=== PATIENT | female | born 1960 | race Caucasian/White ===

== ENCOUNTER 2016-07-21 12:07 | Outpatient (CLI) | payer OTHER | END 2016-07-21 12:08 | disposition home or self-care (01) | DX: M19.012 Primary osteoarthritis, left shoulder (principal); M25.412 Effusion, left shoulder; M25.512 Pain in left shoulder ==

== ENCOUNTER 2016-08-28 13:45 | Outpatient (CLI) | payer OTHER | END 2016-08-28 13:46 | disposition home or self-care (01) | DX: Z12.31 Encounter for screening mammogram for malignant neoplasm of breast (principal) ==

== ENCOUNTER 2016-11-15 14:03 | Outpatient (CLI) | payer OTHER ==
--- NOTE | 2016-11-15 16:09 | MRI Report ---
EXAM: LEFT KNEE MRI WITHOUT CONTRAST EXAM DATE: 11/15/2016 02:35 PM. CLINICAL HISTORY: Left knee gave out over the past 2-3 months. COMPARISON: None. TECHNIQUE: Multiplanar, multisequence T1-weighted and fluid-sensitive sequences of the knee without c ontrast. Other: None. FINDINGS: Bones: There is subchondral edema in the medial margin of the medial femoral and tibial condyle adjac ent to the medial meniscus.. Articular Cartilage: There is severe thinning of the hyaline cartilage of the medial compartment, wit h regions of denuded bone. There is moderate to severe thinning of the hyaline cartilage of the duarte lofemoral compartment, with regions of denuded bone in the medial patellar facet. There is mild thinn ing of the hyaline cartilage of the lateral compartment. Medial Meniscus: There is a full-thickness radial tear of the posterior horn of the medial meniscus w ith medial extrusion. Lateral Meniscus: The lateral meniscus is intact. Cruciate Ligaments: There is complete rupture of the ACL. The PCL appears normal. Collateral Ligaments: There is partial discontinuity of the lateral collateral ligament fibers with i ncreased T2 signal consistent with a prior grade 2 injury. The medial collateral ligament appears unr emarkable. Tendons: The quadriceps, patellar, semimembranosus, and popliteus tendons are unremarkable. Musculature: No edema or fatty atrophy. Other: There is a moderate-sized joint effusion. No loose bodies. The medial and lateral retinacula are intact. The subcutaneous tissues and fat pads are unremarkable. IMPRESSION: 1. Full-thickness radial tear of the posterior horn of the medial meniscus with medial extrusion. 2. Moderate patellofemoral and medial compartment osteoarthritis. Mild lateral compartment osteoarthr itis. 3. Complete rupture of the ACL. 4. Prior grade 2 tear of the lateral collateral ligament. 5. Moderate-sized joint effusion. [facility] MUSCULOSKELETAL RADIOLOGY SECTION Referring Provider Line: [phone] SITE ID: [id number]
== END 2016-11-15 14:04 | disposition home or self-care (01) ==
LOC: DI 14:03
PROVIDERS: ATTEND Orthopaedic Surgery
DX: S83.242A Other tear of medial meniscus, current injury, left knee, initial encounter (principal); M17.12 Unilateral primary osteoarthritis, left knee; S83.512A Sprain of anterior cruciate ligament of left knee, initial encounter; S83.422A Sprain of lateral collateral ligament of left knee, initial encounter; M25.462 Effusion, left knee

== ENCOUNTER 2017-01-03 12:44 | Outpatient (CLI) | payer OTHER | END 2017-01-03 12:45 | disposition home or self-care (01) | LOC: LAB 12:44 | PROVIDERS: ATTEND Orthopaedic Surgery | DX: Z01.812 Encounter for preprocedural laboratory examination (principal) | CPT/HCPCS: 87081; 87640 ==

== ENCOUNTER 2017-01-22 07:14 | Outpatient (CLI) | payer OTHER ==
[2017-01-22 13:09] LABS: BASOPHILS % (AUTO) 0.3 %; EOSINOPHILS # (AUTO) 0.1 10^3/uL (0.0-0.7); EOSINOPHILS % (AUTO) 1.9 %; HCT - HEMATOCRIT 42.7 % (37.0-47.0); HGB - HEMOGLOBIN 14.6 g/dL (12.0-16.0); LYMPHOCYTES # (AUTO) 2.4 10^3/uL (1.5-3.5); LYMPHOCYTES % (AUTO) 36.7 %; MEAN CORPUSCULAR HEMOGLOBIN 29.7 pg (27.0-31.0); MEAN CORPUSCULAR HGB CONC 34.2 g/dL (32.0-36.0); MEAN CORPUSCULAR VOLUME 86.8 fL (81.0-99.0); MEAN PLATELET VOLUME 10.7 fL (7.9-10.8); MONOCYTES # (AUTO) 0.5 10^3/uL (0.0-1.0); MONOCYTES % (AUTO) 7.4 %; NEUTROPHILS # (AUTO) 3.5 10^3/uL (1.5-6.6); NEUTROPHILS % (AUTO) 53.7 %; RED BLOOD COUNT 4.92 10^6/uL (4.20-5.40); RED CELL DISTRIBUTION WIDTH 13.4 % (12.0-15.0); UNCORRECTED WHITE BLOOD COUNT 6.5 x10^3/uL; WHITE BLOOD COUNT 6.5 x10^3/uL (4.8-10.8)
[2017-01-22 13:45] LABS: ALBUMIN/GLOBULIN RATIO 1.9 (1.0-2.2); BILIRUBIN,TOTAL 0.8 mg/dL (0.2-1.0); BUN - BLOOD UREA NITROGEN 21 mg/dL (6-20); CALCIUM 9.2 mg/dL (8.5-10.3); CARBON DIOXIDE - CO2 24 mmol/L (21-32); CHLORIDE 111 mmol/L (101-111); CHOL/HDL RATIO 3.6 (<4.4); CHOLESTEROL 186 mg/dL; GFR - MDRD 58 (>89); GLUCOSE 101 mg/dL (70-100); HDL CHOLESTEROL 51 mg/dL; LDL/HDL RATIO 2.1 (<4.4); POTASSIUM 3.8 mmol/L (3.5-5.0); SODIUM 142 mmol/L (135-145); TOTAL PROTEIN 6.9 g/dL (6.7-8.2); TRIGLYCERIDES 134 mg/dL; VLDL CHOLESTEROL 27 mg/dL
== END 2017-01-22 07:15 | disposition home or self-care (01) ==
LOC: LAB.WCP 07:14
PROVIDERS: ATTEND Family Medicine
DX: I10 Essential (primary) hypertension (principal)
CPT/HCPCS: 36415; 80053; 80061; 84443; 85025

== ENCOUNTER 2017-02-13 04:31 | Inpatient (IN) | payer OTHER ==
[~2017-02-13 04:31] MED LIST: BUPIVACAINE 0.5% PF 30 ML VIAL SUBQ ONE; KETOROLAC 30 MG/ML VIAL IM ONE; MORPHINE PF 10 MG/10 ML AMP SUBQ ONE; ROPIVACAINE 0.2% PF 20 ML AMPULE SUBQ ONE
[2017-02-13] MEDS ORDERED: ceFAZolin 2 GM/50 ML 50 ML IV ONE (09:03)
[2017-02-13] MEDS ORDERED: LACTATED RINGERS 1,000 ML IV ONE ×3 (09:24→13:45)
[2017-02-13] MEDS ORDERED: MORPHINE PF 10 MG/10 ML AMP SUBQ ONE (11:33)
[2017-02-13] MEDS ORDERED: KETOROLAC 30 MG/ML VIAL IM ONE (11:34)
[2017-02-13] MEDS ORDERED: EPINEPHrine 1 MG/ML AMP IVP ONE ×2 (11:34)
[2017-02-13] MEDS ORDERED: BUPIVACAINE 0.5% PF 30 ML VIAL SUBQ ONE (11:34)
[2017-02-13] MEDS ORDERED: ROPIVACAINE 0.2% PF 20 ML AMPULE SUBQ ONE (11:34)
[2017-02-13] MEDS ORDERED: BISACODYL 10 MG SUPP PR PRN (13:06)
[2017-02-13] MEDS ORDERED: SODIUM CHLORIDE FLUSH 0.9% 10 ML SYRINGE IVP PRN (13:06)
[2017-02-13] MEDS ORDERED: SENNA 8.6 MG TABLET PO PRN (13:06)
[2017-02-13] MEDS ORDERED: oxyCOD/ACETAMIN 5 MG/325 MG TABLET PO PRN (13:06)
[2017-02-13] MEDS ORDERED: HYDROmorphone 1 MG/ML SYRINGE IVP PRN (13:06)
--- NOTE | 2017-02-13 13:06 | OPERATIVE REPORT ---
Operative Report - General Admit Date: 02/13/17 Procedure Date: 02/13/17 Planned Procedure: right TKA Pre-Op Diagnosis: DJD right knee Procedure Performed: Right TKA Post Op Diagnosis: DJD right knee - Procedure Note Primary Surgeon: Abdiaziz Anesthesia Provider: Dale Anesthesia Technique: Spinal Estimated Blood Loss (mL): 25 Drain/Tube Type: Hemovac
[2017-02-13] MEDS ORDERED: BACLOFEN 10 MG TABLET PO PRN (13:09)
[2017-02-13] MEDS ORDERED: LORazepam 0.5 MG TABLET PO PRN (13:40)
[2017-02-13] MEDS: ONDANSETRON 4 MG/2 ML VIAL IVP PRN ×2 (14:37→21:56)
--- NOTE | 2017-02-13 15:41 | OPERATIVE REPORT ---
DATE OF SURGERY: 02/13/2017 00:00:0008 PREOPERATIVE DIAGNOSIS: Right knee osteoarthritis. POSTOPERATIVE DIAGNOSIS: Right knee osteoarthritis. NAME OF PROCEDURE: Right total knee arthroplasty. SURGEON: Nemo Freed MD. ANESTHESIA: General and spinal by Shahid Hunter CRNA. INDICATIONS FOR SURGERY: The patient is a 56-year-old female with progressive severe right knee pain that has become functionally limiting and not responding to nonoperative conservative measures. Recom mendation is for total knee arthroplasty. FINDINGS AT SURGERY: The patient's knee exam showed range of motion 5 degrees to 120 degrees with goo d stability in varus valgus testing and mild crepitus in range of motion and Samm testing. At ope n surgery, she was found to have a knee joint effusion and severe degeneration of tricompartmental ar eas of her knee most profound in the medial compartment, but also in the others. The patient had diff use spurring of the joint and intact cruciate ligaments, intact menisci. The patient's bone density i n general was fairly soft. DESCRIPTION OF OPERATIVE PROCEDURE: The patient was taken to the operating room and given a spinal an esthetic. Ibarra catheter was inserted. A tourniquet was placed on her thigh, her knee and leg were st erilely prepped and draped in standard fashion. The surgery was undertaken after time-out with a curv ed medial incision through skin and subcutaneous tissue and then a medial parapatellar incision expos ing the intraarticular knee joint and removing effusion. The patella was able to be everted dislocate d laterally, allowing knee flexion and exposure of osteophytes that were removed from around the tibi a, femur and the patella. A central medullary hole was made in the femur for placement of the distal femoral cutting block which was cut in a routine fashion and then the femur was sized to a size 5 and the appropriate 4-1 cutting block was applied, and these cuts made. The tibia was then subluxated an teriorly and retractors were positioned to allow exposure of the tibial surface and the external towe r was applied and aligned for slope and resection level and rotation. Cut was made, followed by broac paddy for the stem. This was a size C matching to the size 5 femur. The trial reduction was performed and a 14 poly appeared to restore range of motion and good stability. With trials in place, the duarte la was exposed with the knee in extension and measured and then resected. A minimal resection was don e at 8 mm as the patella was initially 22 mm thick. This was a very small patella measuring 26 mm for sizing, and was sized and drilled appropriately. The trial reduction tracked very nicely over the kn ee without further lateral release performed. Trial components were removed, and the implantable comp onents brought to the field initially cementing the tibial tray size C followed by the insertion of t he size 5 distal femur and then the 26 mm patella. A temporary sizing block was placed with the knee in extension to allow cement hardening, after which trial reduction was again done with poly and the 14 poly was selected and inserted. The knee was ranged and was stable and satisfactory irrigation was performed followed by placement of the drain and closure of the knee utilizing FiberWire suture in t he capsule, layered Vicryl closure of subcutaneous tissue and Monocryl closure of skin. Sterile dress ings were applied to the knee. The patient was then taken from the hospital bed to the [facility] and to recovery room in stable condition. ESTIMATED BLOOD LOSS: Minimal. COMPLICATIONS: None. SPONGE AND NEEDLE COUNTS: Correct. JOB #: [id number] EXT JOB #:[id number]
[2017-02-13] MEDS: SODIUM CHLORIDE FLUSH 0.9% 10 ML SYRINGE IVP SCH ×2 (16:09→19:22)
--- NOTE | 2017-02-13 17:03 | XRAY Report ---
TWO VIEW RIGHT KNEE: 02/13/2017 CLINICAL INDICATION: Postop. Frontal and lateral views of the right knee demonstrate a total knee replacement in place. Subcutane ous gas and suprapatellar drain are noted. There is no evidence of acute fracture or immediate hardw are complication. IMPRESSION: EXPECTED POSTOPERATIVE APPEARANCE OF RIGHT KNEE REPLACEMENT. JOB #: [id number] EXT JOB #:[id number]
[2017-02-13] MEDS: ceFAZolin 2 GM/50 ML 50 ML IV SCH (17:55)
[2017-02-13] MEDS: PROMETHAZINE INJ 25 MG in SODIUM CHLORIDE 0.9% 50 ML IV PRN (18:08)
[2017-02-13] MEDS: SODIUM CHLORIDE 0.45% 1,000 ML IV SCH (21:41)
[2017-02-13] MEDS: TOPIRAMATE 25 MG TABLET PO SCH (21:41)
[2017-02-14] MEDS: SODIUM CHLORIDE 0.45% 1,000 ML IV SCH ×2 (00:04→09:28)
[2017-02-14] MEDS ORDERED: PROMETHAZINE 25 MG/1 ML VIAL ONE (00:23)
[2017-02-14] MEDS: PROMETHAZINE INJ 25 MG in SODIUM CHLORIDE 0.9% 50 ML IV PRN (00:29)
[2017-02-14] MEDS: ceFAZolin 2 GM/50 ML 50 ML IV SCH (00:30)
[2017-02-14] MEDS: SODIUM CHLORIDE FLUSH 0.9% 10 ML SYRINGE IVP SCH ×3 (05:40→20:30)
[2017-02-14] MEDS: ONDANSETRON 4 MG/2 ML VIAL IVP PRN ×2 (05:40→09:26)
[2017-02-14 06:19] LABS: CALCIUM 8.6 mg/dL (8.5-10.3); CREATININE 1.2 mg/dL (0.4-1.0); POTASSIUM 3.8 mmol/L (3.5-5.0)
[2017-02-14 06:22] LABS: HGB - HEMOGLOBIN 13.3 g/dL (12.0-16.0)
--- NOTE | 2017-02-14 08:54 | PROVIDER PROGRESS NOTE ---
Subjective - General Admit Date: 02/13/17 Procedure Date: 02/13/17 Post Op Days: 1 Procedure Performed: Right TKA - Review of Systems Wound/Incisions: positive: Dressing dry and intact General: positive: Appetite (nausea) Gastrointestinal: positive: Nausea, Vomiting Objective - Patient Data Reviewed Vital Signs: Yes Vital Signs: Vital Signs x48h Temp Pulse Resp BP Pulse Ox 02/14/17 05:00 37.2 C 97 16 114/62 97 02/14/17 01:00 37.4 C 79 16 117/65 93 Weight: Weight 02/12/17 02/13/17 02/14/17 23:59 23:59 23:59 Weight (kg) 112.6 kg Intake & Output: Intake and Output Totals x24h 02/12/17 02/13/17 02/14/17 23:59 23:59 23:59 Intake Total 3070 799 Output Total 990 650 Balance 2080 149 - Lab Results Lab Results: 02/14/17 05:59 02/14/17 05:59 Other Lab Results: Lab Results x24hrs 02/14/17 02/14/17 Range/Units 05:59 05:59 Hgb 13.3 (12.0-16.0) g/dL Hct 40.0 (37.0-47.0) % Sodium 141 (135-145) mmol/L Potassium 3.8 (3.5-5.0) mmol/L Chloride 106 (101-111) mmol/L Carbon Dioxide 28 (21-32) mmol/L Anion Gap 7.0 (6-13) BUN 21 H (6-20) mg/dL Creatinine 1.2 H (0.4-1.0) mg/dL Estimated GFR (MDRD) 47 L (>89) Glucose 146 H (70-100) mg/dL Calcium 8.6 (8.5-10.3) mg/dL - Imaging Results Radiology Imaging: positive: EMP read indepedently - Current Medications Current Medications: Current Medications Generic Name Dose Route Start Last Admin Trade Name Freq PRN Reason Stop Dose Admin Hydromorphone HCl 1 mg 02/13/17 13:06 02/14/17 00:15 Dilaudid Inj IVP 1 mg Q2HR PRN Administration Breakthrough Pain Sodium Chloride 1,000 mls @ 100 mls/hr 02/13/17 14:00 08/23/17 00:04 Normal Saline 0.45% IV Not Given .Q10H EDELMIRA Promethazine HCl 25 mg/ Sodium 51 mls @ 100 mls/hr 02/13/17 17:08 02/14/17 00: 29 Chloride IV 100 mls/hr Q6H PRN Administration Nausea / Vomiting Ondansetron HCl 4 mg 02/13/17 13:06 02/14/17 05:40 Zofran Inj IVP 4 mg Q6HR PRN Administration Nausea / Vomiting Sodium Chloride 10 ml 02/13/17 14:00 02/14/17 05:40 Normal Saline Flush 0.9% IVP 10 ml Q8HR EDELMIRA Administration Topiramate 25 mg 02/13/17 21:00 02/13/17 21:41 Topamax PO 25 mg BID EDELMIRA Administration - Physical Exam Wound/Incisions: positive: Dressing dry and intact General Appearance: positive: No acute distress Skin: positive: Warm, Dry Neurologic/Psychiatric: positive: Motor nml, Sensation nml, Mood/affect nml Impression/Plan - Problem List Problem List: POD#1 Will make med changes for nausea Plan to do PT, and drain out today. Labs stable
[2017-02-14] MEDS: FAMOTIDINE 20 MG TABLET PO SCH (09:29)
[2017-02-14] MEDS: LEVOTHYROXINE 100 MCG TABLET PO SCH (09:29)
[2017-02-14] MEDS: CHOLECALCIFEROL 1,000 UNIT TABLET PO SCH (09:29)
[2017-02-14] MEDS: CETIRIZINE 10 MG TABLET PO SCH (09:29)
[2017-02-14] MEDS: GABAPENTIN 300 MG CAPSULE PO SCH (09:29)
[2017-02-14] MEDS: VENLAFAXINE ER 75 MG CAPSULE PO SCH (09:29)
[2017-02-14] MEDS: LISINOPRIL 5 MG TABLET PO SCH (09:29)
[2017-02-14] MEDS: TOPIRAMATE 25 MG TABLET PO SCH ×2 (09:30→20:30)
[2017-02-14] MEDS: VITAMIN B COMPLEX PO SCH (09:30)
[2017-02-14] MEDS: MULTIVITAMIN W/MINERALS TABLET PO SCH (09:38)
[2017-02-14] MEDS: ATORVASTATIN 10 MG TABLET PO SCH (09:38)
[2017-02-14] MEDS: HYDROmorphone 2 MG TABLET PO PRN ×2 (14:23→20:30)
[2017-02-14] MEDS: ENOXAPARIN 40 MG/0.4 ML SYRINGE SUBQ SCH (14:59)
[2017-02-14] MEDS: ACETAMINOPHEN 325 MG TABLET PO PRN (21:16)
[2017-02-15] MEDS: HYDROmorphone 2 MG TABLET PO PRN ×3 (02:33→13:55)
[2017-02-15] MEDS: SODIUM CHLORIDE FLUSH 0.9% 10 ML SYRINGE IVP SCH ×2 (06:21→12:41)
[2017-02-15] MEDS: SODIUM CHLORIDE 0.45% 1,000 ML IV SCH (07:45)
[2017-02-15] MEDS: FAMOTIDINE 20 MG TABLET PO SCH (08:11)
[2017-02-15] MEDS: LISINOPRIL 5 MG TABLET PO SCH (08:11)
[2017-02-15] MEDS: CETIRIZINE 10 MG TABLET PO SCH (08:11)
[2017-02-15] MEDS: VENLAFAXINE ER 75 MG CAPSULE PO SCH (08:12)
[2017-02-15] MEDS: CHOLECALCIFEROL 1,000 UNIT TABLET PO SCH (08:12)
[2017-02-15] MEDS: ENOXAPARIN 40 MG/0.4 ML SYRINGE SUBQ SCH (08:12)
[2017-02-15] MEDS: GABAPENTIN 300 MG CAPSULE PO SCH (08:12)
[2017-02-15] MEDS: TOPIRAMATE 25 MG TABLET PO SCH (08:12)
[2017-02-15] MEDS: LEVOTHYROXINE 100 MCG TABLET PO SCH (08:12)
[2017-02-15] MEDS: MULTIVITAMIN W/MINERALS TABLET PO SCH (08:12)
[2017-02-15] MEDS: ATORVASTATIN 10 MG TABLET PO SCH (08:12)
[2017-02-15] MEDS: VITAMIN B COMPLEX PO SCH (08:13)
--- NOTE | 2017-02-15 08:34 | PROVIDER PROGRESS NOTE ---
Subjective - General Admit Date: 02/13/17 Procedure Date: 02/13/17 Post Op Days: 2 Procedure Performed: Right TKA - Review of Systems Wound/Incisions: positive: Dressing dry and intact General: positive: Appetite (nausea) Gastrointestinal: positive: No symptoms Musculoskeletal: positive: Joint pain Psychiatric: positive: No symptoms Objective - Patient Data Reviewed Vital Signs: Yes Vital Signs: Vital Signs x48h Temp Pulse Resp BP Pulse Ox 02/15/17 08:04 37.8 C H 102 H 20 152/82 H 96 02/15/17 05:15 37.3 C 106 H 18 152/76 H 94 02/15/17 01:00 37 C 96 18 133/70 H 98 Weight: Weight 02/13/17 02/14/17 02/15/17 23:59 23:59 23:59 Weight (kg) 112.6 kg Intake & Output: Intake and Output Totals x24h 02/13/17 02/14/17 02/15/17 23:59 23:59 23:59 Intake Total 3070 1829 200 Output Total 990 1775 300 Balance 2080 54 -100 - Lab Results Lab Results: 02/14/17 05:59 02/14/17 05:59 Other Lab Results: Lab Results x24hrs 02/13/17 02/13/17 Range/Units 18:05 09:38 Blood Type A POSITIVE Blood Type Recheck A POSITIVE Antibody Screen NEGATIVE - Current Medications Current Medications: Current Medications Generic Name Dose Route Start Last Admin Trade Name Freq PRN Reason Stop Dose Admin Acetaminophen 650 - 975 mg 02/13/17 13:06 02/14/17 21:16 Tylenol PO 650 mg Q4HR PRN Administration PAIN Atorvastatin Calcium 20 mg 02/14/17 09:00 02/15/17 08:12 Lipitor PO 20 mg DAILY EDELMIRA Administration Cetirizine HCl 10 mg 02/14/17 09:00 02/15/17 08:11 Zyrtec PO 10 mg DAILY EDELMIRA Administration Cholecalciferol 2,000 unit 02/14/17 09:00 02/15/17 08:12 Vitamin D3 PO 2,000 unit DAILY EDELMIRA Administration Enoxaparin Sodium 40 mg 02/14/17 13:00 02/15/17 08:12 Lovenox SUBQ 40 mg DAILY EDELMIRA Administration Famotidine 20 mg 02/14/17 09:00 02/15/17 08:11 Pepcid PO 20 mg DAILY EDELMIRA Administration Gabapentin 300 mg 02/14/17 09:00 02/15/17 08:12 Neurontin PO 300 mg DAILY EDELMIRA Administration Hydromorphone HCl 1 mg 02/13/17 13:06 02/14/17 00:15 Dilaudid Inj IVP 1 mg Q2HR PRN Administration Breakthrough Pain Hydromorphone HCl 2 mg 02/14/17 12:10 02/15/17 08:11 Dilaudid PO 2 mg Q6HR PRN Administration Severe Pain Sodium Chloride 1,000 mls @ 100 mls/hr 02/13/17 14:00 02/15/17 07:45 Normal Saline 0.45% IV Not Given .Q10H EDELMIRA Promethazine HCl 25 mg/ Sodium 51 mls @ 100 mls/hr 02/13/17 17:08 02/14/17 00: 29 Chloride IV 100 mls/hr Q6H PRN Administration Nausea / Vomiting Levothyroxine Sodium 100 mcg 02/14/17 09:00 02/15/17 08:12 Synthroid PO 100 mcg DAILY EDELMIRA Administration Lisinopril 5 mg 02/14/17 09:00 02/15/17 08:11 Zestril PO 5 mg DAILY EDELMIRA Administration Multivitamins/Minerals 1 tab 02/14/17 08:00 02/15/17 08:12 Theragran M PO 1 tab DAILYWM EDELMIRA Administration Ondansetron HCl 4 mg 02/13/17 13:06 02/14/17 09:26 Zofran Inj IVP 4 mg Q6HR PRN Administration Nausea / Vomiting Vitamin B Complex 1 each 02/14/17 09:00 02/15/17 08:13 Tab (Otc) PO Not Given DAILY EDELMIRA Sodium Chloride 10 ml 02/13/17 14:00 02/15/17 06:21 Normal Saline Flush 0.9% IVP 10 ml Q8HR EDELMIRA Administration Topiramate 25 mg 02/13/17 21:00 02/15/17 08:12 Topamax PO 25 mg BID EDELMIRA Administration Venlafaxine HCl 75 mg 02/14/17 09:00 02/15/17 08:12 Effexor Er PO 75 mg DAILY EDELMIRA Administration - Physical Exam Wound/Incisions: positive: Healing well General Appearance: positive: No acute distress Extremities: positive: Joint swelling Neurologic/Psychiatric: positive: Motor nml, Sensation nml Impression/Plan - Problem List Problem List: POD #2 Wound is healing well. Pain control good. Pt. would like to return home and seems ready for that. D/C put in place with office f/u next week.
--- NOTE | 2017-02-15 10:35 | Discharge Plan ---
Discharge Plan Disposition: Home, Self Care Condition: Good Prescriptions: HYDROmorphone [Dilaudid] 2 mg PO Q6HR PRN #30 tablet PRN Reason: Severe Pain Enoxaparin [Lovenox] 40 mg SUBQ DAILY #10 syringe Senna [Senokot] 17.2 mg PO Q12H PRN #14 tablet PRN Reason: Constipation Diet: Regular Activity Restrictions: Wt Bearing as Tolerated Shower Restrictions: Yes (cover dressing) Driving Restrictions: Yes (no driving) Assistance Devices: Walker Weight Bearing: Full Weight Instruction Topics: Hydromorphone tablets, Knee Replace Total Dc, Enoxaparin injection Additional Instructions or Follow Up instructions: office f/u with Dr. Freed next week. Leave dressing intact, clean and dry. Follow-Up Care: Outpatient Rehab - PT (Referral to outpt PT in place.) No Smoking: If you smoke, Please STOP! Call for help. Follow-up with: Isabela Johnston MD [Primary Care Provider] - Nemo Freed MD [Provider Admit Priv/Credential] -
[2017-02-15] MEDS: ACETAMINOPHEN 325 MG TABLET PO PRN (11:04)
[2017-02-15 13:58] VITALS: BP 144/78
== END 2017-02-15 14:27 | disposition home or self-care (01) | DRG 470 ==
LOC: MS2 09:08
PROVIDERS: ADMIT Orthopaedic Surgery; ATTEND Orthopaedic Surgery
PROC: 0SRC0J9 Replacement of Right Knee Joint with Synthetic Substitute, Cemented, Open Approach (ICD-10-PCS; principal; 2017-02-13 10:15)
DX: M17.11 Unilateral primary osteoarthritis, right knee (principal); I10 Essential (primary) hypertension; E78.5 Hyperlipidemia, unspecified; E03.9 Hypothyroidism, unspecified; M79.7 Fibromyalgia; F32.9 Major depressive disorder, single episode, unspecified; K21.9 Gastro-esophageal reflux disease without esophagitis; F41.9 Anxiety disorder, unspecified; G47.30 Sleep apnea, unspecified; G43.909 Migraine, unspecified, not intractable, without status migrainosus; E55.9 Vitamin D deficiency, unspecified; Z87.891 Personal history of nicotine dependence
CPT/HCPCS: 36415; 80048; 85014; 85018; 86850; 86900; 86901

== ENCOUNTER 2017-05-08 06:02 | Inpatient (IN) | payer OTHER ==
[2017-05-08] MEDS ORDERED: LACTATED RINGERS 1,000 ML IV ONE ×3 (06:34→09:17)
[2017-05-08] MEDS ORDERED: ceFAZolin 2 GM/50 ML 2 GM/50 ML BAG IV ONE (06:36)
[2017-05-08] MEDS ORDERED: ACETAMINOPHEN 1,000 MG/100 ML 100 ML IV ONE ×2 (06:37→09:00)
[2017-05-08] MEDS ORDERED: SCOPOLAMINE PATCH TOP ONE (07:00)
[2017-05-08] MEDS ORDERED: FAMOTIDINE 20 MG/50 ML 50 ML IV ONE (07:02)
[2017-05-08] MEDS ORDERED: PROPOFOL 200 MG/20 ML VIAL IVP ONE (09:00)
[2017-05-08] MEDS ORDERED: BUPIVACAINE 0.5% PF 30 ML VIAL SUBQ ONE ×2 (09:00→09:34)
[2017-05-08] MEDS ORDERED: ePHEDrine 50 MG/ML VIAL IVP ONE (09:00)
[2017-05-08] MEDS ORDERED: TRANEXAMIC ACID 1,000 MG/10 ML VIAL IV ONE (09:00)
[2017-05-08] MEDS ORDERED: LIDOCAINE-MPF 2% 5 ML VIAL IM ONE (09:00)
[2017-05-08] MEDS ORDERED: KETOROLAC 30 MG/ML VIAL IVP ONE (09:00)
[2017-05-08] MEDS ORDERED: DEXAMETHASONE 4 MG/ML VIAL IVP ONE (09:00)
[2017-05-08] MEDS ORDERED: MIDAZOLAM 2 MG/2 ML VIAL IVP ONE (09:00)
[2017-05-08] MEDS ORDERED: PROPOFOL 1000 MG/100 ML IV ONE (09:00)
[2017-05-08] MEDS ORDERED: ONDANSETRON 4 MG/2 ML VIAL IVP ONE (09:00)
[2017-05-08] MEDS ORDERED: ROPIVACAINE 0.2% PF 20 ML AMPULE SUBQ ONE (09:15)
[2017-05-08] MEDS ORDERED: KETOROLAC 15 MG/ML VIAL IM ONE (09:15)
[2017-05-08] MEDS ORDERED: EPINEPHrine 1 MG/ML AMP IM ONE (09:15)
[2017-05-08] MEDS ORDERED: CETIRIZINE 10 MG TABLET PO PRN (09:55)
[2017-05-08] MEDS ORDERED: BACLOFEN 10 MG TABLET PO PRN (09:55)
--- NOTE | 2017-05-08 09:55 | OPERATIVE REPORT ---
Operative Report - General Admit Date: 05/08/17 Procedure Date: 05/08/17 Planned Procedure: left TKA Pre-Op Diagnosis: DJD left knee Procedure Performed: Left Total Knee Arthroplasty Post Op Diagnosis: djd left knee - Procedure Note Primary Surgeon: grace Anesthesia Technique: Combo spinal/epidural Estimated Blood Loss (mL): 75
[2017-05-08] MEDS ORDERED: PROCHLORPERAZINE 10 MG/2 ML VIAL IVP PRN (09:56)
[2017-05-08] MEDS ORDERED: ACETAMINOPHEN 1,000 MG/100 ML 100 ML IV PRN (09:56)
[2017-05-08] MEDS ORDERED: oxyCOD/ACETAMIN 5 MG/325 MG TABLET PO PRN (09:56)
[2017-05-08] MEDS ORDERED: SODIUM CHLORIDE FLUSH 0.9% 10 ML SYRINGE IVP PRN (09:56)
[2017-05-08] MEDS ORDERED: BISACODYL 10 MG SUPP PR PRN (09:56)
[2017-05-08] MEDS ORDERED: LORazepam 0.5 MG TABLET PO PRN (10:21)
--- NOTE | 2017-05-08 10:42 | XRAY Report ---
TWO-VIEW LEFT KNEE: 05/08/2017 CLINICAL INDICATION: Postoperative. FINDINGS: Frontal and lateral views of the left knee demonstrate a left knee replacement in place. Subcutaneous gas is seen. There is no evidence of fracture or dislocation. IMPRESSION: EXPECTED POSTOPERATIVE APPEARANCE OF LEFT KNEE REPLACEMENT. JOB #: [id number] EXT JOB #:[id number]
[2017-05-08] MEDS: SODIUM CHLORIDE FLUSH 0.9% 10 ML SYRINGE IVP SCH ×2 (10:45→22:26)
[2017-05-08] MEDS: SODIUM CHLORIDE 0.45% 1,000 ML IV SCH ×2 (11:51→22:30)
--- NOTE | 2017-05-08 12:28 | OPERATIVE REPORT ---
DATE OF SURGERY: 05/08/2017 00:00:00 PREOPERATIVE DIAGNOSIS: Left knee osteoarthritis. POSTOPERATIVE DIAGNOSIS: Left knee osteoarthritis. PROCEDURE: Left total knee replacement arthroplasty. OPERATING SURGEON: Nemo Freed MD. ANESTHESIA: General and spinal. INDICATIONS FOR SURGERY: The patient is a 56-year-old female with progressive osteoarthritis of both knees. She has recently undergone successful right total knee arthroplasty and she now desires surger y of the left knee, which is progressively worsening. The patient reports chronic knee pain, enlargem ent with effusion, and sometimes a feeling of instability. FINDINGS AT SURGERY: The patient's knee exam showed slight effusion, range of motion 3 degrees to ful l flexion with crepitus. At open arthrotomy, she had effusion and synovitis and more severe patchy ch ondromalacia than was expected with full grade thickness, loss of cartilage in the medial compartment on the femoral condyle and on the underside of the patella, as well as defects laterally. The patien t had osteophytic enlargement of the knee, both tibial and femoral and a loose body in the posterior part of the posteromedial knee. DESCRIPTION OF OPERATIVE PROCEDURE: The patient was taken to the operating room. She was given a spin al anesthetic and then positioned supine, receiving anesthetic sedation. A tourniquet was placed high on her left thigh. Her limb was sterilely prepped and draped in the standard fashion. After a surgic al time-out, a medial parapatellar skin incision was made of about 8 inches in length, followed by de epening of the incision to the medial retinaculum and incising along the medial retinaculum to expose the knee joint by arthrotomy. Synovial effusion was evacuated with the suction and further fat pad w as resected, and towards the medial and lateral meniscus and anterior cruciate ligament stump. This a llowed eversion of the patella and flexion of the knee, after which a rongeur was used to remove oste ophytes on all exposed surfaces. The central medullary hole was placed, after which the intramedullar y guide was placed and the distal femoral cutting block applied. A distal cut was made. The sizing bl ock was not effectively able to be placed on the knee due to generalized tightness, and therefore it was elected to proceed directly with resection of the patella from 22 mm down to 15 in preparation fo r patellar replacement with a slight lateral release that did not penetrate the outer layers. The med ial collateral was slightly reflected on the anterior tibia to allow placement of the tibial cutting block and retractors in position to allow this cut to be made, resecting a standard cut and removing the bone and removing then the posterior horns of the menisci and the loose body in the back of the k nee. Following this, the sizing block was reapplied to the femur and appropriate sizing was a 5, just as her opposite knee had sized and 4 in 1 cutting block was applied, and these cuts made. The medull ivanna hole was plugged with cancellous bone and the tibia also sized identically to the right with a si ze C base plate for a 4-5 block, and the Broach stem was drilled and then broached. Trial implants we re applied and a 14 mm poly restored excellent stability, full range of motion, and no tendency to ex trusion of the implants. These implants were removed. The tissues were then irrigated thoroughly and cement was prepared for cementing in the implantable components of a Persona knee and after adequate drying of the cancellous bone, the tibial baseplate and stem were inserted with cement, excess cement removed. The femur was then applied with cement followed by insertion of the tibial poly. Once all e xcess cement was removed, the knee was dropped into extension and further cement was extruded and rem ciara. The patella was then lastly cemented into place and held with a clamp as the cement hardened. F ollowing cement hardening, the knee was flushed and irrigated, and at this point the tourniquet was d eflated. Cautery was used in a limited fashion to control the minimal bleeders that were evident. Idalia sure was undertaken with FiberWire closure of the retinaculum in an interrupted fashion. Subcutaneous tissue closed with 0 and 2-0 Vicryl interrupted and skin with 3-0 Monocryl in a running fashion. A s terile silver containing dressing was applied, followed by ABDs, cast padding, and an Kirk wrap. The p atient was taken to the recovery room in stable condition. ESTIMATED BLOOD LOSS: Minimal, less than 75. COMPLICATIONS: None. SPONGE AND NEEDLE COUNTS: Correct. JOB #: [id number] EXT JOB #:[id number]
[2017-05-08] MEDS: ASPIRIN 325 MG TABLET PO SCH (16:59)
[2017-05-08] MEDS: HYDROmorphone 2 MG TABLET PO PRN ×2 (16:59→22:30)
[2017-05-08] MEDS: ceFAZolin 2 GM/50 ML 2 GM/50 ML BAG IV SCH (16:59)
[2017-05-08] MEDS: ATORVASTATIN 40 MG TABLET PO SCH (22:25)
[2017-05-08] MEDS: VENLAFAXINE ER 75 MG CAPSULE PO SCH (22:25)
[2017-05-08] MEDS: FAMOTIDINE 20 MG TABLET PO SCH (22:25)
[2017-05-08] MEDS: GABAPENTIN 300 MG CAPSULE PO SCH (22:25)
[2017-05-08] MEDS: TOPIRAMATE 25 MG TABLET PO SCH (22:25)
[2017-05-09] MEDS: HYDROmorphone 0.5 MG/0.5 ML SYRINGE IVP PRN ×3 (00:52→20:28)
[2017-05-09] MEDS: SODIUM CHLORIDE FLUSH 0.9% 10 ML SYRINGE IVP SCH ×4 (00:53→20:28)
[2017-05-09] MEDS: ceFAZolin 2 GM/50 ML 2 GM/50 ML BAG IV SCH (00:54)
[2017-05-09] MEDS: HYDROmorphone 2 MG TABLET PO PRN ×3 (05:20→17:20)
[2017-05-09 05:41] LABS: HCT - HEMATOCRIT 37.1 % (37.0-47.0); HGB - HEMOGLOBIN 12.7 g/dL (12.0-16.0)
[2017-05-09 05:47] LABS: CALCIUM 8.4 mg/dL (8.5-10.3); CREATININE 0.9 mg/dL (0.4-1.0)
[2017-05-09] MEDS: ASPIRIN 325 MG TABLET PO SCH ×2 (08:13→17:20)
[2017-05-09] MEDS: MULTIVITAMIN TABLET PO SCH (08:13)
[2017-05-09] MEDS: CHOLECALCIFEROL 1,000 UNIT TABLET PO SCH (08:14)
[2017-05-09] MEDS: POLYETHYLENE GLYCOL 3350 17 GM PACKET PO SCH (08:14)
[2017-05-09] MEDS: LISINOPRIL 5 MG TABLET PO SCH ×2 (08:14→20:28)
[2017-05-09] MEDS: GABAPENTIN 300 MG CAPSULE PO SCH ×2 (08:14→20:27)
[2017-05-09] MEDS: DOCUSATE SODIUM 100 MG CAPSULE PO SCH (08:14)
[2017-05-09] MEDS: ACETAMINOPHEN 325 MG TABLET PO PRN ×2 (08:15→17:20)
[2017-05-09] MEDS: TOPIRAMATE 25 MG TABLET PO SCH ×2 (08:15→20:28)
[2017-05-09] MEDS: [UNRECOGNIZED DRUG - OTHER] PO SCH (08:15)
--- NOTE | 2017-05-09 08:29 | PROVIDER PROGRESS NOTE ---
Subjective - General Admit Date: 05/08/17 Procedure Date: 05/08/17 Post Op Days: 2 Procedure Performed: Left Total Knee Arthroplasty - Review of Systems Wound/Incisions: positive: Dressing dry and intact Musculoskeletal: positive: Joint pain Objective - Patient Data Reviewed Vital Signs: Yes Vital Signs: Vital Signs x48h Temp Pulse Pulse Resp BP Pulse Ox 05/09/17 07:41 36.7 C 75 18 102/54 L 100 05/09/17 05:16 36.7 C 69 17 112/55 L 99 Weight: Weight 05/07/17 05/08/17 05/09/17 23:59 23:59 23:59 Weight (kg) 113 kg Intake & Output: Intake and Output Totals x24h 05/07/17 05/08/17 05/09/17 23:59 23:59 23:59 Intake Total 1989 391.667 Output Total 2850 750 Balance -860 -358.333 - Lab Results Lab Results: 05/09/17 05:01 05/09/17 05:01 Other Lab Results: Lab Results x24hrs 05/09/17 05/09/17 Range/Units 05:01 05:01 Hgb 12.7 (12.0-16.0) g/dL Hct 37.1 (37.0-47.0) % Sodium 139 (135-145) mmol/L Potassium 4.0 (3.5-5.0) mmol/L Chloride 109 (101-111) mmol/L Carbon Dioxide 24 (21-32) mmol/L Anion Gap 6.0 (6-13) BUN 12 (6-20) mg/dL Creatinine 0.9 (0.4-1.0) mg/dL Estimated GFR (MDRD) 65 L (>89) Glucose 121 H (70-100) mg/dL Calcium 8.4 L (8.5-10.3) mg/dL - Imaging Results Radiology Imaging: positive: EMP read indepedently - Current Medications Current Medications: Current Medications Generic Name Dose Route Start Last Admin Trade Name Freq PRN Reason Stop Dose Admin Acetaminophen 650 - 975 mg 05/08/17 09:56 05/09/17 08:15 Tylenol PO 650 mg Q4HR PRN Administration PAIN Aspirin 325 mg 05/08/17 17:00 05/09/17 08:13 Russ PO 325 mg BIDWM EDELMIRA Administration Atorvastatin Calcium 20 mg 05/08/17 21:00 05/08/17 22:25 Lipitor PO 20 mg QPM EDELMIRA Administration Baclofen 10 mg 05/08/17 09:55 05/09/17 00:54 Lioresal PO 10 mg DAILY PRN Administration NEEDED PER PROVIDER ORDERS Cholecalciferol 2,000 unit 05/09/17 09:00 05/09/17 08:14 Vitamin D3 PO 2,000 unit DAILY EDELMIRA Administration Docusate Sodium 100 mg 05/09/17 09:00 05/09/17 08:14 Colace 100mg Capsule PO Not Given DAILY EDELMIRA Famotidine 20 mg 05/08/17 21:00 05/08/17 22:25 Pepcid PO 20 mg QPM EDELMIRA Administration Gabapentin 300 mg 05/08/17 21:00 05/09/17 08:14 Neurontin PO 300 mg BID EDELMIRA Administration Hydromorphone HCl 2 mg 05/08/17 14:12 05/09/17 05:20 Dilaudid PO 2 mg Q6HR PRN Administration Severe Pain Hydromorphone HCl 0.5 mg 05/08/17 14:12 05/09/17 00:52 Dilaudid Inj Syringe IVP 0.5 mg Q2H PRN Administration PAIN Sodium Chloride 1,000 mls @ 100 mls/hr 05/08/17 10:00 05/09/17 01:25 Normal Saline 0.45% IV 100 mls/hr .Q10H EDELMIRA Infusion Levothyroxine Sodium 100 mcg 05/09/17 09:00 05/09/17 08:14 Synthroid PO 100 mcg DAILY EDELMIRA Administration Lisinopril 5 mg 05/09/17 09:00 05/09/17 08:14 Zestril PO Not Given DAILY EDELMIRA Multivitamins 1 tab 05/09/17 08:00 05/09/17 08:13 Theragran PO 1 tab DAILYWM EDELMIRA Administration B Vitamin Complex 1 each 05/09/17 09:00 05/09/17 08:15 Tab (Otc) PO Not Given DAILY EDELMIRA Polyethylene Glycol 17 gm 05/09/17 09:00 05/09/17 08:14 Miralax PO 17 gm DAILY EDELMIRA Administration Sodium Chloride 10 ml 05/08/17 14:00 05/09/17 04:50 Normal Saline Flush 0.9% IVP Not Given Q8HR EDELMIRA Topiramate 25 mg 05/08/17 21:00 05/09/17 08:15 Topamax PO 25 mg BID EDELMIRA Administration Venlafaxine HCl 75 mg 05/08/17 21:00 05/08/17 22:25 Effexor Er PO 75 mg QPM EDELMIRA Administration - Physical Exam Wound/Incisions: positive: Dressing dry and intact General Appearance: positive: No acute distress Extremities: positive: Joint swelling Neurologic/Psychiatric: positive: Sensation nml, Mood/affect nml, Disoriented to person, Disoriented to place Impression/Plan - Problem List Problem List: POD #1 Patient is doing well but some knee pain with motion Plan to advance PT.
[2017-05-09] MEDS ORDERED: LEVOTHYROXINE 100 MCG TABLET PO SCH (09:00)
[2017-05-09] MEDS: SODIUM CHLORIDE 0.45% 1,000 ML IV SCH ×3 (09:05→21:42)
[2017-05-09] MEDS: ATORVASTATIN 40 MG TABLET PO SCH (20:27)
[2017-05-09] MEDS: FAMOTIDINE 20 MG TABLET PO SCH (20:28)
[2017-05-09] MEDS: VENLAFAXINE ER 75 MG CAPSULE PO SCH (20:28)
[2017-05-10] MEDS: ACETAMINOPHEN 325 MG TABLET PO PRN ×3 (00:34→11:42)
[2017-05-10] MEDS: HYDROmorphone 2 MG TABLET PO PRN ×3 (00:35→11:43)
[2017-05-10] MEDS ORDERED: LEVOTHYROXINE 100 MCG TABLET PO SCH (06:00)
[2017-05-10] MEDS: SODIUM CHLORIDE FLUSH 0.9% 10 ML SYRINGE IVP SCH (06:11)
[2017-05-10 07:28] VITALS: BP 143/69
--- NOTE | 2017-05-10 08:23 | PROVIDER PROGRESS NOTE ---
Subjective - General Admit Date: 05/08/17 Procedure Date: 05/08/17 Post Op Days: 2 Procedure Performed: Left Total Knee Arthroplasty - Review of Systems Wound/Incisions: positive: Dressing dry and intact Musculoskeletal: positive: Joint pain Objective - Patient Data Reviewed Vital Signs: Yes Vital Signs: Vital Signs x48h Temp Pulse Resp BP Pulse Ox 05/10/17 07:27 37.5 C 92 18 143/69 H 97 05/10/17 05:37 148/88 H 05/10/17 05:23 37.3 C 97 18 96 05/10/17 00:37 37.6 C H 80 20 146/87 H 96 Weight: Weight 05/08/17 05/09/17 05/10/17 23:59 23:59 23:59 Weight (kg) 113 kg Intake & Output: Intake and Output Totals x24h 05/08/17 05/09/17 05/10/17 23:59 23:59 23:59 Intake Total 1989 3046.667 360 Output Total 2850 750 Balance -860 2296.667 360 - Lab Results Lab Results: 05/09/17 05:01 05/09/17 05:01 - Current Medications Current Medications: Current Medications Generic Name Dose Route Start Last Admin Trade Name Freq PRN Reason Stop Dose Admin Acetaminophen 650 - 975 mg 05/08/17 09:56 05/10/17 06:08 Tylenol PO 650 mg Q4HR PRN Administration PAIN Aspirin 325 mg 05/08/17 17:00 05/09/17 17:20 Russ PO 325 mg BIDWM EDELMIRA Administration Atorvastatin Calcium 20 mg 05/08/17 21:00 05/09/17 20:27 Lipitor PO 20 mg QPM EDELMIRA Administration Baclofen 10 mg 05/08/17 09:55 05/09/17 00:54 Lioresal PO 10 mg DAILY PRN Administration NEEDED PER PROVIDER ORDERS Cholecalciferol 2,000 unit 05/09/17 09:00 05/09/17 08:14 Vitamin D3 PO 2,000 unit DAILY EDELMIRA Administration Docusate Sodium 100 mg 05/09/17 09:00 05/09/17 08:14 Colace 100mg Capsule PO Not Given DAILY EDELMIRA Famotidine 20 mg 05/08/17 21:00 05/09/17 20:28 Pepcid PO 20 mg QPM EDELMIRA Administration Gabapentin 300 mg 05/08/17 21:00 05/09/17 20:27 Neurontin PO 300 mg BID EDELMIRA Administration Hydromorphone HCl 2 mg 05/08/17 14:12 05/10/17 06:08 Dilaudid PO 2 mg Q6HR PRN Administration Severe Pain Hydromorphone HCl 0.5 mg 05/08/17 14:12 05/09/17 20:28 Dilaudid Inj Syringe IVP 0.5 mg Q2H PRN Administration PAIN Sodium Chloride 1,000 mls @ 100 mls/hr 05/08/17 10:00 05/09/17 21:46 Normal Saline 0.45% IV Infused .Q10H EDELMIRA Infusion Levothyroxine Sodium 100 mcg 05/10/17 06:00 05/10/17 06:09 Synthroid PO 100 mcg 0600 EDELMIRA Administration Lisinopril 5 mg 05/09/17 09:00 05/09/17 20:28 Zestril PO 5 mg DAILY EDELMIRA Administration Multivitamins 1 tab 05/09/17 08:00 05/09/17 08:13 Theragran PO 1 tab DAILYWM EDELMIRA Administration B Vitamin Complex 1 each 05/09/17 09:00 05/09/17 08:15 Tab (Otc) PO Not Given DAILY EDELMIRA Polyethylene Glycol 17 gm 05/09/17 09:00 05/09/17 08:14 Miralax PO 17 gm DAILY EDELMIRA Administration Sodium Chloride 10 ml 05/08/17 14:00 05/10/17 06:11 Normal Saline Flush 0.9% IVP 10 ml Q8HR EDELMIRA Administration Topiramate 25 mg 05/08/17 21:00 05/09/17 20:28 Topamax PO 25 mg BID EDELMIRA Administration Venlafaxine HCl 75 mg 05/08/17 21:00 05/09/17 20:28 Effexor Er PO 75 mg QPM EDELMIRA Administration Impression/Plan - Problem List Problem List: POD #2
[2017-05-10] MEDS: POLYETHYLENE GLYCOL 3350 17 GM PACKET PO SCH (08:45)
[2017-05-10] MEDS: DOCUSATE SODIUM 100 MG CAPSULE PO SCH (08:45)
[2017-05-10] MEDS: MULTIVITAMIN TABLET PO SCH (08:45)
[2017-05-10] MEDS: GABAPENTIN 300 MG CAPSULE PO SCH (08:45)
[2017-05-10] MEDS: CHOLECALCIFEROL 1,000 UNIT TABLET PO SCH (08:45)
[2017-05-10] MEDS: ASPIRIN 325 MG TABLET PO SCH (08:45)
[2017-05-10] MEDS: TOPIRAMATE 25 MG TABLET PO SCH (08:45)
[2017-05-10] MEDS: LISINOPRIL 5 MG TABLET PO SCH (08:45)
[2017-05-10] MEDS: [UNRECOGNIZED DRUG - OTHER] PO SCH (08:49)
[2017-05-10] MEDS ORDERED: ENOXAPARIN 30 MG/0.3 ML SYRINGE SUBQ SCH (12:00)
--- NOTE | 2017-05-10 12:03 | Discharge Plan ---
Discharge Plan Disposition: Home, Self Care Prescriptions: HYDROmorphone [Dilaudid] 2 mg PO Q6HR PRN #30 tablet PRN Reason: Severe Pain Baclofen [Lioresal] 10 mg PO DAILY PRN #20 tablet PRN Reason: As Needed Per Provider Orders Bisacodyl Supp [Dulcolax Supp] 10 mg [place] Q12H PRN #10 supp PRN Reason: Constipation Enoxaparin [Lovenox] 30 mg SUBQ DAILY #20 syringe Diet: Regular Activity Restrictions: walker use, dressing dry Shower Restrictions: Yes (keep left knee dry, sit on chair) Driving Restrictions: Yes (no driving) Assistance Devices: Walker Weight Bearing: Full Weight No Smoking: If you smoke, Please STOP! Call for help. Follow-up with: Isabela Johnston MD [Primary Care Provider] - Nemo Freed MD [Provider Admit Priv/Credential] -
== END 2017-05-10 13:32 | disposition home or self-care (01) | DRG 470 ==
LOC: MS3 06:02
PROVIDERS: ADMIT Orthopaedic Surgery; ATTEND Orthopaedic Surgery
PROC: 0SRD0J9 Replacement of Left Knee Joint with Synthetic Substitute, Cemented, Open Approach (ICD-10-PCS; principal; 2017-05-08 07:30)
DX: M17.12 Unilateral primary osteoarthritis, left knee (principal); Z96.651 Presence of right artificial knee joint; E55.9 Vitamin D deficiency, unspecified; E03.9 Hypothyroidism, unspecified; I10 Essential (primary) hypertension; E78.5 Hyperlipidemia, unspecified; M79.7 Fibromyalgia; G43.109 Migraine with aura, not intractable, without status migrainosus; I49.9 Cardiac arrhythmia, unspecified; F41.9 Anxiety disorder, unspecified; G47.30 Sleep apnea, unspecified; Z86.79 Personal history of other diseases of the circulatory system; Z87.891 Personal history of nicotine dependence
CPT/HCPCS: 36415; 80048; 85014; 85018

== ENCOUNTER 2017-09-17 07:31 | Outpatient (CLI) | payer OTHER ==
[2017-09-17 07:48] LABS: BASOPHILS % (AUTO) 0.4 %; EOSINOPHILS # (AUTO) 0.1 10^3/uL (0.0-0.7); EOSINOPHILS % (AUTO) 2.3 %; HGB - HEMOGLOBIN 14.9 g/dL (12.0-16.0); LYMPHOCYTES # (AUTO) 2.4 10^3/uL (1.5-3.5); LYMPHOCYTES % (AUTO) 35.6 %; MEAN CORPUSCULAR HEMOGLOBIN 29.2 pg (27.0-31.0); MEAN CORPUSCULAR HGB CONC 34.1 g/dL (32.0-36.0); MEAN CORPUSCULAR VOLUME 85.6 fL (81.0-99.0); MEAN PLATELET VOLUME 8.8 fL (7.9-10.8); MONOCYTES # (AUTO) 0.5 10^3/uL (0.0-1.0); MONOCYTES % (AUTO) 7.3 %; NEUTROPHILS # (AUTO) 3.6 10^3/uL (1.5-6.6); NEUTROPHILS % (AUTO) 54.4 %; PLT - PLATELET COUNT 130 10^3/uL (130-450); RED CELL DISTRIBUTION WIDTH 13.3 % (12.0-15.0); WHITE BLOOD COUNT 6.6 x10^3/uL (4.8-10.8)
[2017-09-17 08:02] LABS: HB2 TOTAL 16.2 g/dL; HEMOGLOBIN A1C 0.53 g/dL; HEMOGLOBIN A1C % 5.1 % (4.6-6.2)
[2017-09-17 08:07] LABS: ALBUMIN 4.9 g/dL (3.2-5.5); ALBUMIN/GLOBULIN RATIO 2.2 (1.0-2.2); ALKALINE PHOSPHATASE 51 IU/L (42-121); ALT ALANINE AMINOTRANSFERASE 27 IU/L (10-60); AST ASPARTATE AMINOTRANSFERASE 21 IU/L (10-42); BILIRUBIN,TOTAL 0.9 mg/dL (0.2-1.0); BUN - BLOOD UREA NITROGEN 22 mg/dL (6-20); CALCIUM 9.2 mg/dL (8.5-10.3); CARBON DIOXIDE - CO2 25 mmol/L (21-32); CHLORIDE 109 mmol/L (101-111); CHOL/HDL RATIO 3.4 (<4.4); CHOLESTEROL 178 mg/dL; GFR - MDRD 58 (>89); GLUCOSE 105 mg/dL (70-100); HDL CHOLESTEROL 53 mg/dL; LDL CHOLESTEROL,CALCULATED 99 mg/dL; LDL/HDL RATIO 1.9 (<4.4); SODIUM 141 mmol/L (135-145); TOTAL PROTEIN 7.1 g/dL (6.7-8.2); VLDL CHOLESTEROL 26 mg/dL
== END 2017-09-17 07:32 | disposition home or self-care (01) ==
LOC: LAB 07:31
PROVIDERS: ATTEND Family Medicine
DX: Z00.00 Encounter for general adult medical examination without abnormal findings (principal); I10 Essential (primary) hypertension; E78.5 Hyperlipidemia, unspecified; E03.9 Hypothyroidism, unspecified
CPT/HCPCS: 36415; 80053; 80061; 83036; 83721; 84443; 85025

== ENCOUNTER 2018-04-17 08:00 | Outpatient (CLI) | payer OTHER ==
[2018-04-17 13:53] LABS: BASOPHILS % (AUTO) 0.3 %; EOSINOPHILS # (AUTO) 0.1 10^3/uL (0.0-0.7); HGB - HEMOGLOBIN 14.7 g/dL (12.0-16.0); LYMPHOCYTES # (AUTO) 2.2 10^3/uL (1.5-3.5); LYMPHOCYTES % (AUTO) 34.2 %; MEAN CORPUSCULAR HEMOGLOBIN 29.9 pg (27.0-31.0); MEAN PLATELET VOLUME 10.1 fL (7.9-10.8); MONOCYTES # (AUTO) 0.5 10^3/uL (0.0-1.0); MONOCYTES % (AUTO) 8.1 %; NEUTROPHILS # (AUTO) 3.5 10^3/uL (1.5-6.6); NEUTROPHILS % (AUTO) 55.4 %; PLT - PLATELET COUNT 133 10^3/uL (130-450); RED BLOOD COUNT 4.94 10^6/uL (4.20-5.40); RED CELL DISTRIBUTION WIDTH 13.4 % (12.0-15.0); WHITE BLOOD COUNT 6.4 x10^3/uL (4.8-10.8)
[2018-04-17 14:12] LABS: ALBUMIN 4.5 g/dL (3.2-5.5); ALBUMIN/GLOBULIN RATIO 1.8 (1.0-2.2); ALKALINE PHOSPHATASE 50 IU/L (42-121); ALT ALANINE AMINOTRANSFERASE 35 IU/L (10-60); AST ASPARTATE AMINOTRANSFERASE 25 IU/L (10-42); BUN - BLOOD UREA NITROGEN 20 mg/dL (6-20); CALCIUM 9.3 mg/dL (8.5-10.3); CARBON DIOXIDE - CO2 26 mmol/L (21-32); CHLORIDE 108 mmol/L (101-111); CHOL/HDL RATIO 3.1 (<4.4); CHOLESTEROL 163 mg/dL; CREATININE 0.9 mg/dL (0.4-1.0); GFR - MDRD 65 (>89); GLUCOSE 99 mg/dL (70-100); HDL CHOLESTEROL 53 mg/dL; LDL CHOLESTEROL,CALCULATED 85 mg/dL; LDL/HDL RATIO 1.6 (<4.4); SODIUM 143 mmol/L (135-145); VLDL CHOLESTEROL 25 mg/dL
== END 2018-04-17 08:01 | disposition home or self-care (01) ==
LOC: LAB.WCP 08:00
PROVIDERS: ATTEND Family Medicine
DX: E78.5 Hyperlipidemia, unspecified (principal); I10 Essential (primary) hypertension; E03.9 Hypothyroidism, unspecified
CPT/HCPCS: 36415; 80053; 80061; 83721; 84443; 85025

== ENCOUNTER 2018-11-15 09:17 | Outpatient (CLI) | payer BC ==
--- NOTE | 2018-11-15 10:11 | Mammography Report ---
Reason: SCREENING MAMMO Procedure Date: 11/15/2018 Accession Number: [id number] / [id number] Procedure: HEATHER - Screening Mammo Dig Bilat CPT Code: FULL RESULT: EXAM: Screening Mammo Dig Bilat with tomography. DATE: 11/15/2018 9:49 AM CLINICAL HISTORY: Screening encounter. History of negative right breast biopsy. TECHNIQUE: (B) - Bilateral CC and MLO views were obtained. COMPARISON: 08/28/2016 through 09/24/2014. PARENCHYMAL PATTERN: (A) - The breast(s) demonstrate(s) scattered fibroglandular densities. FINDINGS: There are no suspicious masses, calcifications, or areas of distortion. IMPRESSION: Negative examination. BI-RADS category 1. RECOMMENDATION: (ANNUAL) - Recommend routine annual screening mammography. BI-RADS CATEGORY: (1) - Negative. STANDARD QUALIFYING STATEMENTS: 1. This examination was not reviewed with the aid of Computer-Aided Detection (CAD). 2. A negative or benign imaging report should not preclude biopsy if clinically suspicious findings are present. 3. Dense breasts may obscure an underlying neoplasm. 4. This examination was reviewed with the aid of 3D breast imaging (tomosynthesis).
== END 2018-11-15 09:18 | disposition home or self-care (01) ==
LOC: DI 09:17
DX: Z12.31 Encounter for screening mammogram for malignant neoplasm of breast (principal)
CPT/HCPCS: 77067

== ENCOUNTER 2018-12-03 07:47 | Outpatient (CLI) | payer BC ==
[2018-12-03 08:11] LABS: BASOPHILS % (AUTO) 0.3 %; EOSINOPHILS # (AUTO) 0.2 10^3/uL (0.0-0.7); EOSINOPHILS % (AUTO) 2.6 %; LYMPHOCYTES # (AUTO) 2.4 10^3/uL (1.5-3.5); LYMPHOCYTES % (AUTO) 36.4 %; MEAN CORPUSCULAR HGB CONC 33.8 g/dL (32.0-36.0); MEAN CORPUSCULAR VOLUME 85.9 fL (81.0-99.0); MEAN PLATELET VOLUME 9.5 fL (7.9-10.8); MONOCYTES # (AUTO) 0.5 10^3/uL (0.0-1.0); MONOCYTES % (AUTO) 8.1 %; NEUTROPHILS # (AUTO) 3.4 10^3/uL (1.5-6.6); NEUTROPHILS % (AUTO) 52.6 %; PLT - PLATELET COUNT 128 10^3/uL (130-450); RED BLOOD COUNT 5.16 10^6/uL (4.20-5.40); RED CELL DISTRIBUTION WIDTH 13.3 % (12.0-15.0); WHITE BLOOD COUNT 6.5 x10^3/uL (4.8-10.8)
[2018-12-03 08:39] LABS: ALBUMIN 4.6 g/dL (3.2-5.5); ALBUMIN/GLOBULIN RATIO 1.8 (1.0-2.2); ALKALINE PHOSPHATASE 47 IU/L (42-121); ALT ALANINE AMINOTRANSFERASE 41 IU/L (10-60); AST ASPARTATE AMINOTRANSFERASE 24 IU/L (10-42); BILIRUBIN,TOTAL 0.7 mg/dL (0.2-1.0); BUN - BLOOD UREA NITROGEN 24 mg/dL (6-20); CALCIUM 9.4 mg/dL (8.5-10.3); CARBON DIOXIDE - CO2 26 mmol/L (21-32); CHLORIDE 111 mmol/L (101-111); CHOL/HDL RATIO 3.5 (<4.4); CHOLESTEROL 185 mg/dL; GFR - MDRD 57 (>89); GLUCOSE 112 mg/dL (70-100); HDL CHOLESTEROL 53 mg/dL; LDL CHOLESTEROL,CALCULATED 106 mg/dL; SODIUM 146 mmol/L (135-145); TOTAL PROTEIN 7.2 g/dL (6.7-8.2); VLDL CHOLESTEROL 26 mg/dL
[2018-12-03 08:52] LABS: HB2 TOTAL 15.9 g/dL; HEMOGLOBIN A1C 0.53 g/dL; HEMOGLOBIN A1C % 5.2 % (4.6-6.2)
== END 2018-12-03 07:48 | disposition home or self-care (01) ==
LOC: LAB 07:47
PROVIDERS: ATTEND Family Medicine
DX: Z00.00 Encounter for general adult medical examination without abnormal findings (principal); E78.5 Hyperlipidemia, unspecified; E03.9 Hypothyroidism, unspecified; I10 Essential (primary) hypertension
CPT/HCPCS: 36415; 80053; 80061; 83036; 83721; 84443; 85025

== ENCOUNTER 2019-08-13 08:00 | Outpatient (CLI) | payer BC, OTHER ==
[2019-08-14 12:34] LABS: HIV AG/AB 4TH GEN NON-REACTIVE (NON-REACTIVE)
[2019-08-14 13:03] LABS: HEPATITIS C ANTIBODY NON-REACTIVE (NON-REACTIVE)
[2019-08-14 13:04] LABS: HEPATITIS B SURFACE ANTIGEN NON-REACTIVE (NON-REACTIVE)
== END 2019-08-13 23:59 | disposition home or self-care (01) ==
LOC: LAB.WCP 08:00
PROVIDERS: ATTEND Physician Assistant Medical
DX: S61.232A Puncture wound without foreign body of right middle finger without damage to nail, initial encounter (principal)
CPT/HCPCS: 36415; 86317; 86704; 86803; 87340; 87389

== ENCOUNTER 2019-09-08 10:12 | Outpatient (CLI) | payer OTHER | END 2019-09-08 10:13 | disposition home or self-care (01) | LOC: COV 10:12 | PROVIDERS: ATTEND Family Medicine | DX: R05 Cough (principal); R50.9 Fever, unspecified | CPT/HCPCS: 81599 ==

== ENCOUNTER 2020-04-02 08:00 | Outpatient (CLI) | payer OTHER ==
[2020-04-02 11:46] LABS: BASOPHILS % (AUTO) 0.3 %; EOSINOPHILS # (AUTO) 0.2 10^3/uL (0.0-0.7); EOSINOPHILS % (AUTO) 2.9 %; HGB - HEMOGLOBIN 14.8 g/dL (12.0-16.0); LYMPHOCYTES # (AUTO) 2.1 10^3/uL (1.5-3.5); LYMPHOCYTES % (AUTO) 34.6 %; MEAN CORPUSCULAR HGB CONC 33.1 g/dL (32.0-36.0); MEAN CORPUSCULAR VOLUME 90.7 fL (81.0-99.0); MEAN PLATELET VOLUME 11.6 fL (7.9-10.8); MONOCYTES # (AUTO) 0.5 10^3/uL (0.0-1.0); MONOCYTES % (AUTO) 7.7 %; NEUTROPHILS # (AUTO) 3.3 10^3/uL (1.5-6.6); NEUTROPHILS % (AUTO) 54.3 %; PLT - PLATELET COUNT 149 10^3/uL (130-450); RED BLOOD COUNT 4.93 10^6/uL (4.20-5.40); RED CELL DISTRIBUTION WIDTH 12.7 % (12.0-15.0); WHITE BLOOD COUNT 6.1 x10^3/uL (4.8-10.8)
[2020-04-02 13:49] LABS: ALBUMIN 4.4 g/dL (3.2-5.5); ALBUMIN/GLOBULIN RATIO 1.8 (1.0-2.2); ALKALINE PHOSPHATASE 53 IU/L (42-121); ALT ALANINE AMINOTRANSFERASE 31 IU/L (10-60); AST ASPARTATE AMINOTRANSFERASE 24 IU/L (10-42); BUN - BLOOD UREA NITROGEN 22 mg/dL (6-20); CALCIUM 9.1 mg/dL (8.5-10.3); CARBON DIOXIDE - CO2 27 mmol/L (21-32); CHLORIDE 106 mmol/L (101-111); CHOL/HDL RATIO 3.5 (<4.4); CHOLESTEROL 200 mg/dL; GLUCOSE 107 mg/dL (70-100); HDL CHOLESTEROL 57 mg/dL; LDL CHOLESTEROL,CALCULATED 121 mg/dL; LDL/HDL RATIO 2.1 (<4.4); SODIUM 142 mmol/L (135-145); TOTAL PROTEIN 6.9 g/dL (6.7-8.2); VLDL CHOLESTEROL 22 mg/dL
== END 2020-04-02 23:59 | disposition home or self-care (01) ==
LOC: LAB.WCP 08:00
PROVIDERS: ATTEND Physician Assistant Medical
DX: Z00.00 Encounter for general adult medical examination without abnormal findings (principal); E78.5 Hyperlipidemia, unspecified; E03.9 Hypothyroidism, unspecified
CPT/HCPCS: 36415; 80053; 80061; 83721; 84443; 85025

== ENCOUNTER 2020-04-13 14:57 | Outpatient (CLI) | payer OTHER ==
--- NOTE | 2020-04-13 15:52 | DEXA Report ---
PROCEDURE: Dexa Spine and/or Hip INDICATIONS: POST MENOPAUSAL TECHNIQUE: Dual energy x-ray absorptiometry (DXA) was performed on a [employer] System. Regions measur ed are the AP Spine, femoral neck, and if needed forearm. COMPARISON: None. FINDINGS: Lumbar Spine: Bone Mineral Density 0.931 g/cm/cm,T score -2.0, osteopenia Left Femoral Neck: Bone Mineral Density 0.938 g/cm/cm, T score -0.6, normal (T score greater or equal to -1.0: NORMAL) (T score from -1.1 to -2.4: OSTEOPENIA) (T score less than or equal to -2.5 to: OSTEOPOROSIS) Impression: Osteopenia. Patient is at increased risk for fracture. Patients with diagnosis of osteoporosis or osteopenia should have regular bone mineral density assess ment. For those eligible for Medicare, routine testing is allowed once every 2 years. Testing frequ ency can be increased for patients who have rapidly progressing disease or for those who are receivin g medical therapy to restore bone mass. Reviewed by: Fernando Woody MD on 04/13/2020 3:51 PM PDT Approved by: Fernando Woody MD on 04/13/2020 3:51 PM PDT Station ID: [id number]
== END 2020-04-13 14:58 | disposition home or self-care (01) ==
LOC: DI 14:57
PROVIDERS: ATTEND Physician Assistant Medical
DX: M85.88 Other specified disorders of bone density and structure, other site (principal)
CPT/HCPCS: 77080

== ENCOUNTER 2020-05-04 15:49 | Outpatient (CLI) | payer OTHER ==
[2020-05-04 16:40] VITALS: BP 137/80
--- NOTE | 2020-05-04 16:40 | SLEEP CARE CONSULTATION ---
Information from patient questionnaire entered by [facility]. I have reviewed and concur with the information entered by [facility]. This document represents the service I personally performed and the decisions made by me, Noris Dumont ARNP. History of Present Illness Service Date and Time: 05/04/2020 1549 Reason for Visit: New patient, Previously diagnosed sleep apnea Chief Complaint: reports: Unrefreshed sleep, Snoring, Excessive daytime sleepiness, Observed pauses in breathing, Other (morning headache; previously diagnosed with ALEXI 10 yrs ago, lost weight and stopped CPAP). denies: Insomnia, Fatigue, Frequent awakenings at night Date of Onset: 6 months? Usual bedtime: 10 PM Time it takes to fall asleep: 5-30 minutes Snores at night: Yes Observed to quit breathing while asleep: Yes Sleeps alone due to snoring: Yes Number of times waking at night: 2 Reasons for waking at night: reports: Pain, Bathroom. denies: Choking, Snoring, Gasping for air Toss, Turn, or Twitch while sleeping: No Recalls having dreams: Yes Usually gets out of bed at: 6 AM Feels refreshed in the morning: No Morning headache: Yes (when sleeps on back 1-2 times a week; last 1-2 hrs) Sleepy or fatigued during the day: Yes Ever fallen asleep while driving: No Takes day naps: Yes (1-2 during week; 2-3 a day on weekends) Dreams during day naps: Yes Prior sleep studies: Yes Year and Where: 12 or 15 years ago ([facility]) Additional HPI information: I had the pleasure of seeing PANCHO AMATO today regarding the possibility of her having a sleep disorder. Her current complaints are snoring, pauses in breathing and morning headaches. She states she was previously diagnosed with obstructive sleep apnea and was on a CPAP machine. She lost a lot of weight and felt good when not using the machine so she stopped her CPAP therapy. She has since regained some weight and over the last 6 months or so her symptoms are returning. She states it can be really bad when she sleeps on her back. Her father has apnea and should be on CPAP but she does not think he uses it. She states there is a long history of obstructive sleep apnea in the family. - Parasomnia Symptoms Ever been unable to move upon waking from sleep: Yes Walks in sleep: No Talks in sleep: No Ever acted out dreams in sleep: No Ever felt weak in the knees when startled or emotional: Yes Bothered by creepy, crawly, restless sensations in legs: Yes Problems with memory or concentration: Yes Subjective Initial [employer] Sleepiness Scale score: 17 (in 2020) Past Medical History Past Medical History: reports: Hypertension, Dysphagia, Diabetes, Insulin resistance, Hypothyroidism, Fibromyalgia, Anxiety, Depression, GERD. 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 Patient is and lives in [place]. Have you smoked in the past 12 months: Yes (vapes) Cigarettes per day (20/pack): 40 Years of smokin Quit date: 2002 Smoking Pack Years: 50.0 Alcohol use: No Caffeine use: Yes Caffeine amount and frequency: 2 cups/day Family History Family history of sleep disordered breathing: Yes (father) Family Hx Sleep Apnea: Father: Snoring, Sleep apnea - Untreated Allergies and Home Medications Drug allergies reviewed: Yes (NKDA) Home medication list reviewed: Yes Allergy and home medication list: Lisinopril Crestor Effexor Bentyl Topamax Vitamin D3 Multivitamin Calcium Fish oil probiotic Review of Systems Weight gain over past 5 years: 30 Cardiovascular: reports: high blood pressure, palpitations. denies: chest pain, irregular heart rate or pulse, leg or foot swelling Respiratory: denies: shortness of breath Gastrointestinal: reports: heartburn. denies: difficulty swallowing Neurological: reports: headaches. denies: seizure, head trauma, speech dysfunction, gait or balance problems Psychiatric: reports: anxiety, depression. denies: Attention Deficit Hyperactivity, mood disorder, claustrophobia Ear/Nose/Throat: reports: nasal congestion, dry mouth/throat (occasionally in mornings). denies: sinus problems, nose bleeds, injury to nose, tonsillectomy, wisdom teeth removed Endocrine: reports: thyroid disease Musculoskeletal: reports: joint pain, muscle pain or cramping Immunologic: reports: allergies to food or environment (slight seasonal allergies) Physical Exam Blood Pressure: 137/80 Cuff size: wrist Heart Rate: 94 O2 Saturation: 98 Height: 5 ft 4 in Weight: 266 lb Body Mass Index: 45.6 BMI Classification: Morbidly Obese Neck circumference: 15.75 (inches) HEENT: No craniofacial malformation Nostrils: patent to airflow Turbinates: swollen Septum: midline Mouth and throat: narrow oropharynx Uvula visualization: 100% Mallampati Class I Tongue: normal in size Tonsils: absent bilaterally Chin and jaw: normal size and position Neck: normal w/o lymphadenopathy or thyromegaly Heart: regular rate and rhythm Lungs: clear bilaterally Impression and Plan 1. Suspected Obstructive Sleep Apnea-Hypopnea Syndrome, as suggested by previous diagnosis of sleep apnea and a history of loud and irregular snoring, observed cessation of breath while asleep, morning headache, unrefreshed sleep, cognitive impairment, and excessive daytime sleepiness. I reviewed with patient that a narrow oropharynx and obesity are common predisposing factors for obstructive sleep apnea-hypopnea syndrome. I recommend proceeding to polysomnography to confirm the diagnosis and to assess severity. If the patient has significant sleep disordered breathing, a manual CPAP titration study will also be performed to find the optimal treatment pressure. I informed the patient of what the sleep studies involve and after some discussion, obtained agreement to proceed. The pathophysiology of obstructive sleep apnea-hypopnea syndrome was discussed with the patient and health risks of cardiovascular and cerebrovascular disease if not treated. AAS brochure for obstructive sleep apnea-hypopnea syndrome given and reviewed. Risks of drowsy driving discussed in detail and patient advised to avoid long distance driving and to cloth covered helmet puller at the first sign of drowsiness. Patient agreed to plan. * Schedule polysomnography +- manual CPAP titration study. * Avoid long distance driving or driving when feeling sleepy. * Avoid alcohol, sedative and muscle relaxant around bedtime. * Attempt to lose weight. * Review instructions provided by trained office staff on how to prepare for the sleep study. * Return for follow-up after sleep study completed. Counseling Topics: Weight loss health impact Visit Type: In Office Time Spent with Patient (minutes): 30 Provider Statement: I spent 100% of the Face to Face Visit with the patient with greater than 50% spent counseling the patient and coordination of care.
== END 2020-05-04 15:50 | disposition home or self-care (01) ==
LOC: SC 15:49
PROVIDERS: ATTEND Nurse Practitioner Family
DX: G47.33 Obstructive sleep apnea (adult) (pediatric) (principal); F17.290 Nicotine dependence, other tobacco product, uncomplicated; E66.01 Morbid (severe) obesity due to excess calories; Z68.42 Body mass index [BMI] 45.0-49.9, adult
CPT/HCPCS: 99203; 99212

== ENCOUNTER 2020-07-08 08:00 | Outpatient (CLI) | payer OTHER ==
[2020-07-08 18:04] LABS: BASOPHILS % (AUTO) 0.3 %; EOSINOPHILS # (AUTO) 0.1 10^3/uL (0.0-0.7); EOSINOPHILS % (AUTO) 1.3 %; HGB - HEMOGLOBIN 15.6 g/dL (12.0-16.0); LYMPHOCYTES # (AUTO) 1.3 10^3/uL (1.5-3.5); LYMPHOCYTES % (AUTO) 13.9 %; MEAN CORPUSCULAR HEMOGLOBIN 29.5 pg (27.0-31.0); MEAN CORPUSCULAR HGB CONC 32.4 g/dL (32.0-36.0); MEAN CORPUSCULAR VOLUME 91.3 fL (81.0-99.0); MONOCYTES # (AUTO) 0.5 10^3/uL (0.0-1.0); MONOCYTES % (AUTO) 5.1 %; NEUTROPHILS # (AUTO) 7.6 10^3/uL (1.5-6.6); NEUTROPHILS % (AUTO) 79.1 %; PLT - PLATELET COUNT 132 10^3/uL (130-450); RED BLOOD COUNT 5.28 10^6/uL (4.20-5.40); RED CELL DISTRIBUTION WIDTH 12.8 % (12.0-15.0); WHITE BLOOD COUNT 9.6 x10^3/uL (4.8-10.8)
[2020-07-08 18:40] LABS: ALBUMIN 4.6 g/dL (3.2-5.5); ALBUMIN/GLOBULIN RATIO 1.8 (1.0-2.2); BILIRUBIN,TOTAL 1.1 mg/dL (0.2-1.0); CALCIUM 9.5 mg/dL (8.5-10.3); CREATININE 1.2 mg/dL (0.4-1.0); TOTAL PROTEIN 7.2 g/dL (6.7-8.2)
== END 2020-07-08 23:59 | disposition home or self-care (01) ==
LOC: LAB.N 08:00
PROVIDERS: ATTEND Family Medicine
DX: R30.0 Dysuria (principal); R10.9 Unspecified abdominal pain; R19.7 Diarrhea, unspecified
CPT/HCPCS: 36415; 80053; 81599; 82150; 83630; 83690; 83993; 84443; 85025; 87045; 87046; 87329; 87427; 87493

== ENCOUNTER 2020-07-22 20:01 | Emergency (ER) | payer OTHER ==
[2020-07-22] MEDS ORDERED: SODIUM CHLORIDE 0.9% 1,000 ML IV STA (20:26)
[2020-07-22] MEDS ORDERED: KETOROLAC 30 MG/ML VIAL IVP STA (20:26)
[2020-07-22] MEDS ORDERED: BUDESONIDE 3 MG CAPSULE PO STA (20:27)
--- NOTE | 2020-07-22 20:30 | ED Physician Documentation ---
PD HPI ABD PAIN - Stated complaint Stated Complaint: ABD CRAMP, POSS BLOODY DIARRHEA - Chief complaint Chief Complaint: Abd Pain - History obtained from History obtained from: Patient - Additional information Additional information: 59-year-old woman with history of IBS has had cramps and diarrhea since . She was seen in the clinic and had testing done, stool cultures were negative. Blood work was relatively unremarkable. The most notable positive finding was a stool calprotectin of 112 0 mcg/g which is suggestive of inflammatory bowel disease. She has a colonoscopy scheduled in about a month but tonight the cramps which are across the top of the abdomen and left-sided became much more severe and are associated with bloody diarrhea. Review of Systems Ten Systems: 10 systems reviewed and negative Constitutional: denies: Fever, Chills, Weight Loss Cardiac: denies: Chest pain / pressure, Palpitations Respiratory: denies: Dyspnea, Cough PD PAST MEDICAL HISTORY - Past Medical History Past Medical History: Yes Cardiovascular: Hypertension, High cholesterol, Other Respiratory: Sleep apnea Endocrine/Autoimmune: HyPOthyroidism GI: GERD : Kidney stones HEENT: Chronic vision loss, Other Psych: Depression, Anxiety Musculoskeletal: Osteoarthritis, Fibromyalgia Derm: None - Past Surgical History Past Surgical History: Yes General: Colonoscopy Ortho: Knee replacement, Carpal Tunnel surgery /[employer]: Hysterectomy, Other Cardiovascular: Other HEENT: Tonsil/Adenoidectomy - Present Medications Home Medications: Ambulatory Orders Medication Instructions Recorded Confirmed B Complex W-C No.20/Folic Acid 1 cap PO DAILY 02/06/17 07/22/20 [Mynephron Capsule] Cholecalciferol (Vitamin D3) 2,000 units PO DAILY 02/06/17 07/22/20 [Vitamin D3] Levothyroxine [Synthroid] 100 mcg PO DAILY 02/06/17 07/22/20 Multivitamin/Iron/Folic Acid 1 tab PO DAILY 02/06/17 07/22/20 [Centrum Adults Tablet] Rosuvastatin Calcium [Crestor] 10 mg PO MOWEFR 02/06/17 07/22/20 Topiramate [Topamax] 25 mg PO BID 02/06/17 07/22/20 lisinopriL [Lisinopril] 5 mg PO DAILY 02/06/17 07/22/20 Venlafaxine HCl [Venlafaxine HCl 75 mg PO DAILY 05/08/17 07/22/20 ER] Cetirizine [ZyrTEC] 10 mg PO DAILY PRN tablet 05/10/17 07/22/20 Aspirin [Aspirin EC] 81 mg PO DAILY 07/22/20 07/22/20 Budesonide [Entocort EC] 9 mg PO DAILY #30 capsule 07/22/20 Calcium Carbonate [Calcium] 600 mg PO DAILY 07/22/20 07/22/20 Cholestyramine [Questran] 4 gm PO BID 07/22/20 07/22/20 Dicyclomine [Bentyl] 10 mg PO QID PRN 07/22/20 07/22/20 Esomeprazole Magnesium [Nexium 20 mg PO DAILY 07/22/20 07/22/20 24Hr] Famotidine [Pepcid] 40 mg PO DAILY 07/22/20 07/22/20 [place]-3S/Dha/Epa/Fish Oil [Fish 1 each PO DAILY 07/22/20 07/22/20 Oil 1,200 mg Softgel] - Allergies Allergies/Adverse Reactions: Allergies Allergy/AdvReac Type Severity Reaction Status Date / Time senna AdvReac Cramps Verified 04/23/17 11:36 - Social History Does the pt smoke?: No Smoking Status: Former smoker Does the pt drink ETOH?: No Does the pt have substance abuse?: No - Immunizations Immunizations are current?: Yes - POLST Patient has POLST: No PD ED PE NORMAL - Vitals Vital signs reviewed: Yes - General General: Alert and oriented X 3, No acute distress - Cardiac Cardiac: RRR, No murmur - Respiratory Respiratory: No respiratory distress, Clear bilaterally - Abdomen Abdomen: Normal bowel sounds, Soft, Non tender - Derm Derm: Normal color, Warm and dry - Neuro Neuro: Alert and oriented X 3, Normal speech Results - Vitals Vitals: Vital Signs - 24 hr 07/22/20 07/22/20 07/22/20 20:07 20:09 21:50 Temperature 36.9 C 36.9 C Heart Rate 104 H 104 H 88 Respiratory 19 19 14 Rate Blood Pressure 139/84 H 139/84 H 130/80 O2 Saturation 100 100 100 Oxygen O2 Source Room air - Labs Labs: Laboratory Tests 07/22/20 07/22/20 20:41 20:41 WBC 10.0 RBC 5.67 H Hgb 16.7 H Hct 49.4 H MCV 87.1 MCH 29.5 MCHC 33.8 RDW 12.7 Plt Count 205 MPV 10.7 Neut # (Auto) 6.8 H Lymph # (Auto) 2.3 Garvin # (Auto) 0.8 Eos # (Auto) 0.1 Baso # (Auto) 0.0 Absolute Nucleated RBC 0.00 Nucleated RBC % 0.0 Sodium 143 Potassium 3.4 L Chloride 108 Carbon Dioxide 22 Anion Gap 13.0 BUN 20 Creatinine 1.1 H Estimated GFR (MDRD) 51 L Glucose 117 H Calcium 9.5 Total Bilirubin 1.0 AST 28 ALT 37 Alkaline Phosphatase 58 Total Protein 7.5 Albumin 4.9 Globulin 2.6 Albumin/Globulin Ratio 1.9 Lipase 31 PD MEDICAL DECISION MAKING - ED course ED course: 59-year-old woman who by history and physical probably have inflammatory bowel disease especially based on the stool calprotectin. Has a colonoscopy scheduled but she is worsening and she is given some IV fluids and Toradol here. She is already on Dicyclomine. We also discussed the potential for starting budesonide orally and she would like to proceed with the understanding that may obfuscate colonoscopy/pathology findings. Departure - Departure Disposition: 01 Home, Self Care Clinical Impression: Hematochezia Abdominal pain Qualifiers: Abdominal location: generalized Qualified Code(s): R10.84 - Generalized abdominal pain Condition: Good Record reviewed to determine appropriate education?: Yes Instructions: ED Colitis Ulcerative Prescriptions: Budesonide [Entocort EC] 9 mg PO DAILY #30 capsule Comments: As discussed, based on previous work-up it is likely you have inflammatory bowel disease. We are starting budesonide for this. Return if worse and follow-up with your primary care physician. Below is the text of the email I sent to the surgeon that you are scheduled to have your upper and lower endoscopies with: Tha, I am seeing a mutual patient lyly in the emergency department, Ms. Sakshi Caro, date of 1960. I am unsure if you have actually seen her yet but you are scheduled to do upper and lower endoscopies sometime in July on her. She has a history of IBS and since New Year's Eladia has had cramps and diarrhea. She had outpatient testing done, blood work and stool cultures were basically unremarkable but she did have a stool calprotectin of 1120 mcg/g suggestive of inflammatory bowel disease. I am seeing her now for grossly bloody diarrhea. She is feeling much better after some medications and IV fluids. Tonight her lab work is consistent with hemoconcentration with hemoglobin of 16.7, hematocrit of 49.4. She has a total white count of 10,000 exactly. Her chemistry panels are basically unremarkable. I am starting her on oral budesonide presuming she has inflammatory bowel disease. I am emailing you because I am concerned that this may obfuscate her colonoscopy findings and wonder if you need her to stop the budesonide or to expedite the studies. If either need to be done please reach out to her. Thanks! Florentino Sheridan MD [facility] Emergency Department [employer] Chief of Medicine [facility] Discharge Date/Time: 07/22/20 21:51
[2020-07-22 20:46] LABS: BASOPHILS % (AUTO) 0.3 %; EOSINOPHILS # (AUTO) 0.1 10^3/uL (0.0-0.7); EOSINOPHILS % (AUTO) 0.9 %; HGB - HEMOGLOBIN 16.7 g/dL (12.0-16.0); LYMPHOCYTES # (AUTO) 2.3 10^3/uL (1.5-3.5); LYMPHOCYTES % (AUTO) 22.7 %; MEAN CORPUSCULAR HEMOGLOBIN 29.5 pg (27.0-31.0); MEAN CORPUSCULAR HGB CONC 33.8 g/dL (32.0-36.0); MEAN CORPUSCULAR VOLUME 87.1 fL (81.0-99.0); MEAN PLATELET VOLUME 10.7 fL (7.9-10.8); MONOCYTES # (AUTO) 0.8 10^3/uL (0.0-1.0); MONOCYTES % (AUTO) 8.1 %; NEUTROPHILS # (AUTO) 6.8 10^3/uL (1.5-6.6); NEUTROPHILS % (AUTO) 67.8 %; PLT - PLATELET COUNT 205 10^3/uL (130-450); RED BLOOD COUNT 5.67 10^6/uL (4.20-5.40); RED CELL DISTRIBUTION WIDTH 12.7 % (12.0-15.0)
[2020-07-22 21:04] LABS: ALBUMIN 4.9 g/dL (3.2-5.5); ALBUMIN/GLOBULIN RATIO 1.9 (1.0-2.2); CALCIUM 9.5 mg/dL (8.5-10.3); CREATININE 1.1 mg/dL (0.4-1.0); TOTAL PROTEIN 7.5 g/dL (6.7-8.2)
[2020-07-22 21:51] VITALS: BP 130/80
== END 2020-07-22 21:51 | disposition home or self-care (01) ==
LOC: ED 20:01
DX: K92.1 Melena (principal); R10.84 Generalized abdominal pain; R19.7 Diarrhea, unspecified; Z87.19 Personal history of other diseases of the digestive system; I10 Essential (primary) hypertension; Z79.82 Long term (current) use of aspirin; Z87.891 Personal history of nicotine dependence
CPT/HCPCS: 36415; 80053; 83690; 85025; 96361; 96374; 99283; 99284; A9270

== ENCOUNTER 2020-08-13 12:37 | Outpatient (CLI) | payer OTHER | END 2020-08-13 12:38 | disposition home or self-care (01) | LOC: COV 12:37 | PROVIDERS: ATTEND Surgery | DX: Z01.812 Encounter for preprocedural laboratory examination (principal); K21.9 Gastro-esophageal reflux disease without esophagitis; R19.4 Change in bowel habit; Z20.822 Contact with and (suspected) exposure to COVID-19 ==

== ENCOUNTER 2020-08-17 13:23 | Day surgery (SDC) | payer OTHER ==
[2020-08-17] MEDS ORDERED: LACTATED RINGERS 1,000 ML IV ONE ×2 (13:54→17:09)
[2020-08-17] MEDS ORDERED: fentaNYL 250 MCG/5 ML VIAL ONE (16:17)
[2020-08-17] MEDS ORDERED: MIDAZOLAM 2 MG/2 ML VIAL ONE ×5 (16:17→17:02)
[2020-08-17] MEDS ORDERED: BENZOCAINE/TETRACAINE/BUTAMBEN 20 GM TOP ONE (16:27)
[2020-08-17 18:53] VITALS: BP 107/72
== END 2020-08-17 13:24 | disposition home or self-care (01) ==
LOC: SDS 13:23
PROVIDERS: ATTEND Surgery
PROC: 0DBE8ZX Excision of Large Intestine, Via Natural or Artificial Opening Endoscopic, Diagnostic (ICD-10-PCS; principal; 2020-08-17 14:30)
PROC: 0DB68ZX Excision of Stomach, Via Natural or Artificial Opening Endoscopic, Diagnostic (ICD-10-PCS; 2020-08-17 14:30)
DX: K52.9 Noninfective gastroenteritis and colitis, unspecified (principal); K63.89 Other specified diseases of intestine; K21.00 Gastro-esophageal reflux disease with esophagitis, without bleeding; K29.50 Unspecified chronic gastritis without bleeding; K44.9 Diaphragmatic hernia without obstruction or gangrene; K91.61 Intraoperative hemorrhage and hematoma of a digestive system organ or structure complicating a digestive system procedure; Y83.8 Other surgical procedures as the cause of abnormal reaction of the patient, or of later complication, without mention of misadventure at the time of the procedure; Y92.234 Operating room of hospital as the place of occurrence of the external cause; E03.9 Hypothyroidism, unspecified; I10 Essential (primary) hypertension; M79.7 Fibromyalgia; E55.9 Vitamin D deficiency, unspecified; I49.9 Cardiac arrhythmia, unspecified; G47.30 Sleep apnea, unspecified; F17.290 Nicotine dependence, other tobacco product, uncomplicated; Z79.82 Long term (current) use of aspirin; Z79.899 Other long term (current) drug therapy; F32.9 Major depressive disorder, single episode, unspecified; F41.9 Anxiety disorder, unspecified
CPT/HCPCS: 43239; 45380; A9270; J3010; J7120

== ENCOUNTER 2020-08-30 19:27 | Outpatient (CLI) | payer OTHER | END 2020-08-30 19:28 | disposition home or self-care (01) | LOC: SC 19:27 | PROVIDERS: ATTEND Nurse Practitioner Family | DX: G47.33 Obstructive sleep apnea (adult) (pediatric) (principal); E66.9 Obesity, unspecified; Z68.42 Body mass index [BMI] 45.0-49.9, adult | CPT/HCPCS: 95810 ==

== ENCOUNTER 2020-09-07 16:27 | Outpatient (CLI) | payer OTHER ==
--- NOTE | 2020-09-07 16:51 | SLEEP CARE CONSULTATION ---
Information from patient questionnaire entered by [facility]. I have reviewed and concur with the information entered by [facility]. This document represents the service I personally performed and the decisions made by me, Noris Dumont ARNP. History of Present Illness Service Date and Time: 09/07/2020 162 Initial [place] Sleepiness Scale score: 17 (in 2020) Current [place] Sleepiness Scale score: 15 Additional HPI information: PANCHO AMATO returns for follow up and results of the recently performed polysomnography. She was found to have moderate obstructive sleep apnea with moderate hypoxia with a chacha oxygen saturation of 63%. I explained the pathophysiology behind obstructive sleep apnea. We then spent quite a bit of time discussing different treatment options. For mild obstructive sleep apnea, surgery and oral appliance are alternatives to nasal CPAP therapy but in moderate or severe cases, nasal CPAP is the most effective and reliable treatment. After some discussion, the patient opted to go with the nasal CPAP therapy. Nasal autoCPAP set at 4-15 cmH20 will be ordered with rationale explained. A manual titration study will be ordered if unable to find optimal pressure with office adjustments. I explained how CPAP machine works with sample devices [employer] and [id number] and what to expect when using the machine. Using CPAP every night in order to get used to it was emphasized. Patient advised to put CPAP mask on before getting into bed so as not to fall asleep without CPAP. To assist acclimation to CPAP use, it could also be used for a short time during day while reading or watching TV. The patient was instructed to call the CPAP supplier to discuss any mechanical problem that may occur. If the mask given is uncomfortable or is difficult to keep on through the night even with adjustment, contact the CPAP supplier as many will replace with another mask style if notified before 30 days. If snoring or perceives is not getting enough air or too much air from the machine, notify this office. AASM patient education PAP tips reviewed and given to patient. Patient does not drink alcohol. Patient was cautioned about risks of drowsy driving until sleepiness symptoms resolve. Sleep Study - Results Type of Sleep Study: Polysomnography Prior sleep studies: Yes Year and Where: 12 or 15 years ago ([facility]) Polysomnography/Home Sleep Study results: IMPRESSION: The quality of the study is good. The patient had normal sleep efficiency. The sleep architecture was abnormal for sleep fragmentation and reduced amount of time spent in REM sleep. Respiratory monitoring showed moderate obstructive sleep apnea-hypopnea (AHI = 20.7) associated with frequent arousals, oxyhemoglobin desaturation and moderate hypoxia (chacha oxygen saturation of 63%). Baseline oxygen saturation was normal. The respiratory events occurred mainly during supine sleep (supine AHI = 22.2; non- supine = 13.13). Snore was loud in intensity. There was no significant periodic leg movement of sleep. Cardiac rhythm was normal sinus rhythm without significant arrhythmia. No abnormal behavior (parasomnia) observed during the night. Allergies and Home Medications Home medication list reviewed: Yes (no new medications) Review of Systems Review of systems same as previous: Yes (no changes) Physical Exam Heart Rate: 87 O2 Saturation: 93 Height: 5 ft 4 in Weight: 258 lb Body Mass Index: 44.2 BMI Classification: Morbidly Obese Impression and Plan 1. Obstructive Sleep Apnea-Hypopnea Syndrome, moderate, with lowest oxygen saturation of 63%. Obviously this is the cause of the patients symptoms of unrefreshed sleep, and excessive daytime sleepiness. Positive pressure therapy could benefit hypertension, anxiety, depression, fibromyalgia and acid reflux. As mentioned above, the patient will be started on nasal autoCPAP therapy with pressure set at 4-15 cmH2O. A manual titration study will be completed if unable to find optimal treatment pressure with office adjustments. Compliance guidelines also reviewed. A copy of compliance guidelines will be given for reference at check out. Because the apnea is more severe supine, I instructed to avoid sleeping supine using pillow positioning until able to start CPAP use. Because patient chacha oxygen saturation was 63%, I will write for an urgent setup to get her on the CPAP as soon as possible. Patient voiced understanding and agreement with plan of care. * Nasal auto CPAP therapy, pressure at 4-15 cm H2O with an urgent setup due to moderate hypoxia during study. * Attempt to lose weight. * Avoid alcohol consumption near bedtime. * Avoid supine sleep until using CPAP. * The patient is again cautioned about driving until sleepiness completely resolves. * Return one month after CPAP obtained. I will assess response to therapy and compliance at that time. Counseling Topics: Weight loss health impact Visit Type: In Office Time Spent with Patient (minutes): 21 Provider Statement: I spent 100% of the Face to Face Visit with the patient with greater than 50% spent counseling the patient and coordination of care.
== END 2020-09-07 16:28 | disposition home or self-care (01) ==
LOC: SC 16:27
PROVIDERS: ATTEND Nurse Practitioner Family
DX: G47.33 Obstructive sleep apnea (adult) (pediatric) (principal); E66.01 Morbid (severe) obesity due to excess calories; Z68.41 Body mass index [BMI] 40.0-44.9, adult
CPT/HCPCS: 99212; 99213

== ENCOUNTER 2021-04-08 09:34 | Outpatient (CLI) | payer OTHER ==
[2021-04-08 13:33] LABS: THYROID STIMULATING HORMONE 0.75 uIU/mL (0.34-5.60)
[2021-04-08 13:40] LABS: ALBUMIN 4.6 g/dL (3.2-5.5); ALBUMIN/GLOBULIN RATIO 1.6 (1.0-2.2); ALKALINE PHOSPHATASE 52 IU/L (42-121); ALT ALANINE AMINOTRANSFERASE 47 IU/L (10-60); AST ASPARTATE AMINOTRANSFERASE 30 IU/L (10-42); BILIRUBIN,TOTAL 0.9 mg/dL (0.2-1.0); BUN - BLOOD UREA NITROGEN 18 mg/dL (6-20); CALCIUM 9.9 mg/dL (8.5-10.3); CARBON DIOXIDE - CO2 27 mmol/L (21-32); CHLORIDE 107 mmol/L (101-111); CHOL/HDL RATIO 3.2 (<4.4); CHOLESTEROL 166 mg/dL; GFR - MDRD 57 (>89); GLUCOSE 113 mg/dL (70-100); HDL CHOLESTEROL 52 mg/dL; LDL CHOLESTEROL,CALCULATED 90 mg/dL; LDL/HDL RATIO 1.7 (<4.4); POTASSIUM 4.6 mmol/L (3.5-5.0); SODIUM 145 mmol/L (135-145); TOTAL PROTEIN 7.4 g/dL (6.7-8.2); TRIGLYCERIDES 120 mg/dL; VLDL CHOLESTEROL 24 mg/dL
[2021-04-08 14:02] LABS: ESTIMATED AVERAGE GLUCOSE 103 mg/dL (70-100); HEMOGLOBIN A1c% 5.2 % (4.27-6.07)
== END 2021-04-08 23:59 | disposition home or self-care (01) ==
LOC: LAB.WCP 09:34
PROVIDERS: ATTEND Physician Assistant Medical
DX: R73.01 Impaired fasting glucose (principal); E78.5 Hyperlipidemia, unspecified; E03.9 Hypothyroidism, unspecified
CPT/HCPCS: 36415; 80053; 80061; 83036; 83721; 84443

== ENCOUNTER 2021-09-08 16:02 | Outpatient (CLI) | payer OTHER ==
--- NOTE | 2021-09-08 17:30 | CT Report ---
PROCEDURE: Low Dose Lung Cancer Screen INDICATIONS: NICOTINE DEPENDENCY TECHNIQUE: Noncontrast low-dose images were acquired from the pulmonary apices to the posterior costophrenic ang les. Multiplanar MIP reformats were then acquired. For radiation dose reduction, the following was used: automated exposure control, adjustment of mA and/or kV according to patient size. COMPARISON: None. FINDINGS: Image quality: Excellent. Lungs and pleura: Tiny pulmonary nodule at the right lung base measuring 0.3 cm, (4/237). Minimal ate lectasis at the left lung base. Airways are clear. No pleural effusion. Mediastinum: Atrial septal occluder device. Heart size is normal. No pericardial effusion. No media stinal adenopathy by size criteria. Thoracic aorta and central pulmonary arteries are normal in size . Esophagus is normal in caliber. No hiatal hernia. Bones and chest wall: No suspicious bony lesions. No vertebral body compression fractures. No axil jessica or supraclavicular adenopathy by size criteria. The thyroid is normal in size and there are no incidental findings. Abdomen: Hepatic steatosis. Visualized upper abdomen solid organs and bowel loops appear normal in t he absence of contrast. IMPRESSION: No significant pulmonary nodules. Lung RADS 2. Recommend follow-up lung cancer screening chest CT in 12 months. Hepatic steatosis. Reviewed by: Eric Lang MD on 09/08/2021 4:29 PM TOLU Approved by: Eric Lang MD on 09/08/2021 4:29 PM TOLU Station ID: [id number]
== END 2021-09-08 16:03 | disposition home or self-care (01) ==
LOC: DI 16:02
PROVIDERS: ATTEND Physician Assistant Medical
DX: Z12.2 Encounter for screening for malignant neoplasm of respiratory organs (principal); K76.0 Fatty (change of) liver, not elsewhere classified; F17.200 Nicotine dependence, unspecified, uncomplicated

== ENCOUNTER 2021-10-10 09:09 | Outpatient (CLI) | payer OTHER ==
[2021-10-10 12:39] LABS: CALCIUM 9.5 mg/dL (8.5-10.3); CREATININE 1.2 mg/dL (0.4-1.0); POTASSIUM 4.2 mmol/L (3.5-5.0)
== END 2021-10-10 09:10 | disposition home or self-care (01) ==
LOC: LAB.N 09:09
PROVIDERS: ATTEND Physician Assistant Medical
DX: R73.01 Impaired fasting glucose (principal)
CPT/HCPCS: 36415; 80048; 81599; 83036

== ENCOUNTER 2021-12-22 08:55 | Outpatient (CLI) | payer OTHER ==
--- NOTE | 2021-12-23 07:56 | Mammography Report ---
BILATERAL DIGITAL SCREENING MAMMOGRAM 3D/2D: 12/22/2021 CLINICAL: Routine screening. Comparison is made to exams dated: 11/15/2018 mammogram, 08/28/2016 mammogram, 10/12/2014 mammogram, 09/24 mammogram, 02/07/2013 mammogram, and 01/17/2012 mammogram - [facility]. There are scattered fibroglandular elements in both breasts. No significant masses, calcifications, or other findings are seen in either breast. There has been no significant interval change. IMPRESSION: NEGATIVE There is no mammographic evidence of malignancy. A 1 year screening mammogram is recommended. Based on the Tyrer Cuzick model (a risk assessment model) the patients lifetime risk is 8.1% and her 10 year risk is 3.2%. According to the ACR, ACS, and NCCN guidelines, an annual breast MRI exam escobar g with mammogram is recommended if the patients lifetime risk is 20% or greater. This exam was interpreted at Station ID: [id number]. NOTE: For mammograms, a report in lay terms will be sent to the patient. Approximately 15% of breast malignancies will not be visualized mammographically. In the management of a palpable breast mass, a negative mammogram must not discourage biopsy of a clinically suspicious lesion. Electronically Signed By: Nabil Menjivar M.D., jr/holly:12/22/2021 12:21:29 ACR BI-RADS Category 1: Negative 3341F PARENCHYMAL PATTERN: (A) - The breast(s) demonstrate(s) scattered fibroglandular densities. BI-RADS CATEGORY: (1) - 1 RECOMMENDATION: (ANNUAL) - Recommend routine annual screening mammography. [id number] 1 year screening LATERALITY: (B)
== END 2021-12-22 08:56 | disposition home or self-care (01) ==
LOC: DI.N 08:55
DX: Z12.31 Encounter for screening mammogram for malignant neoplasm of breast (principal)

== ENCOUNTER 2022-01-11 08:00 | Outpatient (CLI) | payer OTHER ==
[2022-01-11 17:41] LABS: BILIRUBIN,URINE NEGATIVE (NEGATIVE); GLUCOSE, URINE (UA) NEGATIVE (NEGATIVE); KETONES,URINE (UA) NEGATIVE (NEGATIVE); LEUKOCYTE ESTERASE, URINE NEGATIVE (NEGATIVE); NITRITE,URINE NEGATIVE (NEGATIVE); OCCULT BLOOD,URINE TRACE-INTA (NEGATIVE); PROTEIN,URINE NEGATIVE (NEGATIVE); UROBILINOGEN,URINE 0.2 (NORMAL) E.U./dL (NORMAL)
[2022-01-11 17:42] LABS: CLARITY,URINE HAZY (CLEAR)
[2022-01-11 18:04] LABS: BACTERIA,URINE Rare /HPF (None Seen); SQUAMOUS EPITHELIAL CELL,UR MOD Squamous (<= Few); WBC,URINE 0-3 /HPF (0-5)
[2022-01-11 18:05] LABS: AMORPHOUS SEDIMENT,UR Few /LPF
== END 2022-01-11 23:59 | disposition home or self-care (01) ==
LOC: LAB.N 08:00
PROVIDERS: ATTEND Emergency Medicine
DX: R30.0 Dysuria (principal)
CPT/HCPCS: 81001; 87086

== ENCOUNTER 2022-04-20 08:25 | Outpatient (CLI) | payer OTHER ==
[2022-04-20 12:02] LABS: BASOPHILS % (AUTO) 0.3 %; EOSINOPHILS # (AUTO) 0.2 10^3/uL (0.0-0.7); EOSINOPHILS % (AUTO) 2.6 %; HCT - HEMATOCRIT 45.3 % (37.0-47.0); HGB - HEMOGLOBIN 14.8 g/dL (12.0-16.0); LYMPHOCYTES # (AUTO) 2.4 10^3/uL (1.5-3.5); LYMPHOCYTES % (AUTO) 36.2 %; MEAN CORPUSCULAR HEMOGLOBIN 29.6 pg (27.0-31.0); MEAN CORPUSCULAR HGB CONC 32.7 g/dL (32.0-36.0); MEAN CORPUSCULAR VOLUME 90.6 fL (81.0-99.0); MEAN PLATELET VOLUME 11.6 fL (7.9-10.8); MONOCYTES # (AUTO) 0.5 10^3/uL (0.0-1.0); MONOCYTES % (AUTO) 7.6 %; NEUTROPHILS # (AUTO) 3.5 10^3/uL (1.5-6.6); PLT - PLATELET COUNT 139 10^3/uL (130-450); RED CELL DISTRIBUTION WIDTH 12.8 % (12.0-15.0); WHITE BLOOD COUNT 6.6 x10^3/uL (4.8-10.8)
[2022-04-20 12:56] LABS: THYROID STIMULATING HORMONE 4.34 uIU/mL (0.34-5.60)
[2022-04-20 13:04] LABS: ALBUMIN 4.4 g/dL (3.2-5.5); ALBUMIN/GLOBULIN RATIO 1.6 (1.0-2.2); ALKALINE PHOSPHATASE 57 IU/L (42-121); ALT ALANINE AMINOTRANSFERASE 42 IU/L (10-60); AST ASPARTATE AMINOTRANSFERASE 29 IU/L (10-42); BILIRUBIN,TOTAL 0.9 mg/dL (0.2-1.0); BUN - BLOOD UREA NITROGEN 16 mg/dL (6-20); CALCIUM 10.4 mg/dL (8.5-10.3); CARBON DIOXIDE - CO2 29 mmol/L (21-32); CHLORIDE 108 mmol/L (101-111); CHOL/HDL RATIO 3.8 (<4.4); CHOLESTEROL 196 mg/dL; CREATININE 1.2 mg/dL (0.4-1.0); GFR - MDRD 46 (>89); GLUCOSE 117 mg/dL (70-100); HDL CHOLESTEROL 52 mg/dL; LDL CHOLESTEROL,CALCULATED 122 mg/dL; LDL/HDL RATIO 2.3 (<4.4); SODIUM 145 mmol/L (135-145); TOTAL PROTEIN 7.1 g/dL (6.7-8.2); TRIGLYCERIDES 111 mg/dL; VLDL CHOLESTEROL 22 mg/dL
== END 2022-04-20 08:26 | disposition home or self-care (01) ==
LOC: LAB.N 08:25
PROVIDERS: ATTEND Physician Assistant Medical
DX: E78.5 Hyperlipidemia, unspecified (principal); E03.9 Hypothyroidism, unspecified; K21.9 Gastro-esophageal reflux disease without esophagitis
CPT/HCPCS: 36415; 80053; 80061; 83721; 84443; 85025

== ENCOUNTER 2023-05-28 06:50 | Day surgery (SDC) | payer OTHER ==
[~2023-05-28 06:50] MED LIST changes: -BUPIVACAINE 0.5% PF 30 ML VIAL SUBQ ONE; -KETOROLAC 30 MG/ML VIAL IM ONE; -MORPHINE PF 10 MG/10 ML AMP SUBQ ONE; -ROPIVACAINE 0.2% PF 20 ML AMPULE SUBQ ONE; +ceFAZolin 2 GM VIAL ONE
[2023-05-28] MEDS ORDERED: LACTATED RINGERS 1,000 ML IV ONE ×2 (07:11→10:30)
--- NOTE | 2023-05-28 07:30 | ANESTHESIA ---
Pre-Anesthesia VS, & Labs - Diagnosis right renal calculi - Procedure Right ESWL Vital Signs: Temp Pulse Resp BP Pulse Ox O2 Flow Rate 36.5 C 73 16 149/88 H 98 05/28/23 07:12 05/28/23 07:12 05/28/23 07:12 05/28/23 07:12 05/28/23 07:12 Height: 5 ft 3 in Weight (kg): 125.6 kg Body Mass Index: 49.0 BMI Classification: Morbidly Obese - NPO >8 hours - Is Patient ?: No Home Medications and Allergies Home Medications: Ambulatory Orders Nystatin Cream [Mycostatin Cream] 1 applic TOP BID PRN 05/21/23 Omeprazole 20 mg PO BID 05/21/23 hydrOXYzine HCL [Hydroxyzine HCl] 25 mg PO TID PRN 05/21/23 B Complex W-C No.20/Folic Acid [Mynephron Capsule] 1 cap PO DAILY 02/06/17 Cholecalciferol (Vitamin D3) [Vitamin D3] 2,000 units PO DAILY 02/06/17 Levothyroxine [Synthroid] 100 mcg PO DAILY 02/06/17 Multivitamin/Iron/Folic Acid [Centrum Adults Tablet] 1 tab PO DAILY 02/06/17 Rosuvastatin Calcium [Crestor] 10 mg PO MOWEFR 02/06/17 Topiramate [Topamax] 25 mg PO BID 02/06/17 Venlafaxine HCl [Venlafaxine HCl ER] 75 mg PO DAILY 05/08/17 Aspirin [Aspirin EC] 81 mg PO DAILY 07/22/20 Dicyclomine [Bentyl] 10 mg PO QID PRN 07/22/20 [place]-3S/Dha/Epa/Fish Oil [Fish Oil 1,200 mg Softgel] 1 each PO DAILY 07/22/20 Nystatin Cream [Mycostatin Cream] 1 applic TOP BID PRN 05/21/23 Omeprazole 20 mg PO BID 05/21/23 hydrOXYzine HCL [Hydroxyzine HCl] 25 mg PO TID PRN 05/21/23 Allergies/Adverse Reactions: Allergies Allergy/AdvReac Type Severity Reaction Status Date / Time No Known Drug Allergies Allergy Verified 05/28/23 07:03 Anes History & Medical History - Anesthetic History Anesthesia Complications: reports: No previous complications - Medical History Cardiovascular: reports: Hypertension, High cholesterol, Other (History of repaired pfo) Pulmonary: reports: Sleep apnea, CPAP use Gastrointestinal: reports: GERD, Other Urinary: reports: Frequency, Kidney stones Neuro: reports: None Musculoskeletal: reports: Osteoarthritis, Fibromyalgia Endocrine/Autoimmune: reports: HyPOthyroidism Blood Disorders: reports: None Skin: reports: None Smoking Status: Never smoker Psychosocial: reports: No issues indicated History of Cancer?: No - Surgical History General: reports: Colonoscopy Eyes Ears Nose Throat (EENT): reports: Tonsil/Adenoidectomy Cardiothoracic: reports: Other Urologic: reports: Ureterolithotomy (stones) Gynecologic: reports: Hysterectomy, Other Orthopedic: reports: Knee replacement, Carpal Tunnel surgery Exam General: Alert, Oriented x3, Cooperative, No acute distress Dental: WNL Mouth Openin Fingerbreadth Neck Mobility: Normal Mallampati classification: III Thyromental Distance: 4-6 cm Mental/Cognitive Status: Alert/Oriented X3, Normal for patient Plan Anesthesia Type: General Consent for Procedure(s) Verified and Reviewed: Yes Code Status: Attempt Resuscitation ASA classification: 3-Severe systemic disease Is this case an emergency?: No
[2023-05-28] MEDS ORDERED: LIDOCAINE-PF 2% 10 ML AMP SUBQ ONE (08:02)
[2023-05-28] MEDS ORDERED: PROPOFOL 200 MG/20 ML VIAL IVP ONE (08:02)
[2023-05-28] MEDS ORDERED: fentaNYL 100 MCG/2 ML VIAL ONE (08:02)
[2023-05-28] MEDS ORDERED: MIDAZOLAM 2 MG/2 ML VIAL ONE (08:02)
[2023-05-28] MEDS ORDERED: HYDROmorphone 0.5 MG/0.5 ML SYRINGE IVP PRN (08:21)
[2023-05-28] MEDS ORDERED: ePHEDrine 50 MG/ML VIAL IVP PRN (08:21)
[2023-05-28] MEDS ORDERED: ATROPINE ABBOJECT 1 MG/10 ML SYRINGE IVP PRN (08:21)
[2023-05-28] MEDS ORDERED: METOCLOPRAMIDE 10 MG/2 ML VIAL IVP PRN (08:21)
[2023-05-28] MEDS ORDERED: MORPHINE 2 MG/ML CARPUJECT IVP PRN (08:21)
[2023-05-28] MEDS ORDERED: fentaNYL 100 MCG/2 ML VIAL IVP PRN (08:21)
[2023-05-28] MEDS ORDERED: NALOXONE 0.4 MG/ML VIAL IVP PRN (08:21)
[2023-05-28] MEDS ORDERED: ONDANSETRON 4 MG/2 ML VIAL IVP PRN ×2 (08:21→09:40)
[2023-05-28] MEDS ORDERED: DEXAMETHASONE 4 MG/ML VIAL ONE (08:32)
[2023-05-28] MEDS ORDERED: ONDANSETRON 4 MG/2 ML VIAL ONE (08:32)
[2023-05-28] MEDS ORDERED: LACTATED RINGERS 1,000 ML IV SCH (09:00)
[2023-05-28] MEDS ORDERED: HYDROcod/ACETAM 5/325 MG TABLET PO PRN (09:40)
--- NOTE | 2023-05-28 09:44 | ANESTHESIA POST OP EVALUATION ---
Anesthesia Post Eval - Post Anesthesia Eval Vitals: Last Vital Signs Temp 36.1 C L 05/28/23 09:30 Pulse 68 05/28/23 09:30 Resp 14 05/28/23 09:30 BP 153/87 H 05/28/23 09:30 Pulse Ox 97 05/28/23 09:30 O2 Flow Rate CV Function Including HR & BP: Stable Pain Control: Satisfactory Nausea & Vomiting: Negative Mental Status: Baseline Respiratory Status: Airway Patent Hydration Status: Satisfactory Anesthesia Complications: None
--- NOTE | 2023-05-28 09:54 | Discharge Plan ---
Discharge Plan Problem Reviewed?: Yes Disposition: Home, Self Care Condition: Good Prescriptions: Docusate Sodium 100Mg Capsule [Colace 100Mg Capsule] 100 mg PO DAILY #7 cap HYDROcod/ACETAM 5/325 [Elk 5/325] 1 tab PO Q4H PRN #10 tablet PRN Reason: Pain Diet: Regular Activity Restrictions: No Restrictions Instruction Topics: Lithotripsy Shock Wave Additional Instructions or Follow Up instructions: You will be contacted for follow-up in about [address] Rodriguez No Smoking: If you smoke, Please STOP! Call for help. Follow-up with: Rosalinda Powell PA-C [Primary Care Provider] -
--- NOTE | 2023-05-28 09:57 | OPERATIVE REPORT ---
Operative Report - General Procedure Date: 05/28/23 Planned Procedure: right extracorporeal shock wave lithotripsy Pre-Op Diagnosis: right kidney stone Procedure Performed: right extracorporeal shock wave lithotripsy Post Op Diagnosis: right kidney stone - Procedure Note Primary Surgeon: Michael Anesthesia Provider: LUIGI Milner Anesthesia Technique: General LMA Findings: 9mm right UPJ stone, poor fragmentation Complications: poor fragmentation - Other Other Information/Narrative: After informed consent was obtained the patient brought to the OR and laid the supine position. The patient was anesthetized per anesthesia protocols and prepp in usual fashion. The shockwave lithotripter was placed to her right flank. Using fluoroscopy we visualized the stone which was a 9 mm right UPJ stone. It was readily apparent. It was targeted easily. After formal timeout was performed reconfirming the patient, procedure and laterality the shockwave procedure began. This started at a rate of 1 Hz. After 500 shocks we increased the rate to 1.5 Hz. A total of 2500 shocks were delivered. This stone was intermittently x-rayed to visualize the efficacy of the treatment. The stone perhaps had some mild dissolution but overall did not significantly break up. After 2500 shocks this concluded the procedure. The patient tolerated the procedure well was brought to the PACU without further incident. The patient will follow-up in 6 weeks time with an x-ray.
[2023-05-28 10:24] VITALS: BP 125/91; O2SAT 99
== END 2023-05-28 06:51 | disposition home or self-care (01) ==
LOC: SDS 06:50
PROVIDERS: ATTEND Urology
DX: N20.1 Calculus of ureter (principal); E66.01 Morbid (severe) obesity due to excess calories; Z68.42 Body mass index [BMI] 45.0-49.9, adult; R35.0 Frequency of micturition; G47.30 Sleep apnea, unspecified; I10 Essential (primary) hypertension
CPT/HCPCS: 50590; J7120

== ENCOUNTER 2023-06-11 07:26 | Outpatient (CLI) | payer OTHER ==
[2023-06-11 12:46] LABS: BASOPHILS % (AUTO) 0.1 %; EOSINOPHILS # (AUTO) 0.1 10^3/uL (0.0-0.7); EOSINOPHILS % (AUTO) 1.8 %; HCT - HEMATOCRIT 44.7 % (37.0-47.0); HGB - HEMOGLOBIN 14.9 g/dL (12.0-16.0); LYMPHOCYTES # (AUTO) 1.8 10^3/uL (1.5-3.5); LYMPHOCYTES % (AUTO) 24.2 %; MEAN CORPUSCULAR HEMOGLOBIN 29.1 pg (27.0-31.0); MEAN CORPUSCULAR HGB CONC 33.3 g/dL (32.0-36.0); MEAN CORPUSCULAR VOLUME 87.3 fL (81.0-99.0); MEAN PLATELET VOLUME 11.8 fL (7.9-10.8); MONOCYTES # (AUTO) 0.8 10^3/uL (0.0-1.0); MONOCYTES % (AUTO) 10.9 %; NEUTROPHILS # (AUTO) 4.6 10^3/uL (1.5-6.6); NEUTROPHILS % (AUTO) 62.7 %; PLT - PLATELET COUNT 138 10^3/uL (130-450); RED BLOOD COUNT 5.12 10^6/uL (4.20-5.40); RED CELL DISTRIBUTION WIDTH 12.9 % (12.0-15.0); WHITE BLOOD COUNT 7.3 x10^3/uL (4.8-10.8)
[2023-06-11 13:11] LABS: ALBUMIN 4.6 g/dL (3.2-5.5); ALBUMIN/GLOBULIN RATIO 1.8 (1.0-2.2); BILIRUBIN,TOTAL 0.7 mg/dL (0.2-1.0); CALCIUM 9.6 mg/dL (8.5-10.3); CREATININE 1.1 mg/dL (0.6-1.3); POTASSIUM 3.7 mmol/L (3.5-4.5); TOTAL PROTEIN 7.2 g/dL (6.4-8.9)
[2023-06-11 13:21] LABS: THYROID STIMULATING HORMONE 1.99 uIU/mL (0.34-5.60)
[2023-06-12 08:12] LABS: CHOL/HDL RATIO 3.3 (<4.4); CHOLESTEROL 182 mg/dL; HDL CHOLESTEROL 55 mg/dL; LDL CHOLESTEROL,CALCULATED 98 mg/dL; LDL/HDL RATIO 1.8 (<4.4); TRIGLYCERIDES 145 mg/dL (48-352); VLDL CHOLESTEROL 29 mg/dL
== END 2023-06-11 07:27 | disposition home or self-care (01) ==
LOC: LAB.N 07:26
PROVIDERS: ATTEND Physician Assistant Medical
DX: I10 Essential (primary) hypertension (principal); E78.5 Hyperlipidemia, unspecified; E03.9 Hypothyroidism, unspecified
CPT/HCPCS: 36415; 80053; 80061; 83721; 84443; 85025

== ENCOUNTER 2023-06-11 07:44 | Outpatient (CLI) | payer OTHER ==
--- NOTE | 2023-06-11 09:41 | XRAY Report ---
PROCEDURE: Knee 4 View RT INDICATIONS: SPRAIN OF OTHER SPECIFIED PARTS OF RIGHT KNEE TECHNIQUE: 4 views of the knee(s) were acquired. COMPARISON: 03/28/2017. FINDINGS: Bones: Stable postsurgical changes and alignment of the right total knee arthroplasty without eviden ce for hardware loosening or failure. No fractures or dislocations. No suspicious bony lesions. Soft tissues: No knee joint effusion. No suspicious soft tissue calcifications or masses. IMPRESSION: No acute bony abnormality. Stable postsurgical changes and alignment of right total knee arthroplasty without evidence for hardw are complication. Reviewed by: Fernando Woody MD on 06/11/2023 9:39 AM PST Approved by: Fernando Woody MD on 06/11/2023 9:39 AM PST Station ID: [id number]
== END 2023-06-11 07:45 | disposition home or self-care (01) ==
LOC: DI.N 07:44
PROVIDERS: ATTEND Registered Nurse
DX: S83.8X1A Sprain of other specified parts of right knee, initial encounter (principal); Z96.651 Presence of right artificial knee joint

== ENCOUNTER 2023-06-13 08:00 | Outpatient (CLI) | payer OTHER ==
--- NOTE | 2023-06-13 17:07 | XRAY Report ---
PROCEDURE: Abdomen 1 View (KUB) INDICATIONS: KIDNEY STONES TECHNIQUE: AP view of the abdomen was acquired COMPARISON: CT abdomen pelvis without contrast 04/17/2023 FINDINGS: There is an oval radiodensity projecting at the hilum of the right kidney measuring 10 mm likely joana esponding to renal calculus. There are 2 adjacent oval radial densities projecting over the region of the left kidney with the superior one measuring 5 mm and the inferior one measuring 8 mm, also likel y representing renal calculi. Bowel gas pattern is nonobstructive. IMPRESSION: Probable 10 mm right renal calculus and 2 adjacent left renal calculi measuring 5 and 8 mm. Reviewed by: Eunice Patel MD on 06/13/2023 5:06 PM PST Approved by: Eunice Patel MD on 06/13/2023 5:06 PM PST Station ID: [id number]
== END 2023-06-13 23:59 | disposition home or self-care (01) ==
LOC: DI.WOS 08:00
PROVIDERS: ATTEND Urology
DX: N20.0 Calculus of kidney (principal); R30.0 Dysuria
CPT/HCPCS: 87086

== ENCOUNTER 2023-06-27 13:24 | Outpatient (CLI) | payer OTHER ==
[2023-06-27 18:06] LABS: ESTIMATED AVERAGE GLUCOSE 105 mg/dL (70-100); HEMOGLOBIN A1c% 5.3 % (4.27-6.07)
== END 2023-06-27 13:25 | disposition home or self-care (01) ==
LOC: LAB.N 13:24
PROVIDERS: ATTEND Physician Assistant Medical
DX: R73.01 Impaired fasting glucose (principal)
CPT/HCPCS: 36415; 83036

== ENCOUNTER 2023-07-05 08:00 | Outpatient (CLI) | payer OTHER ==
--- NOTE | 2023-07-05 18:11 | XRAY Report ---
PROCEDURE: Abdomen 1 View (KUB) INDICATIONS: KIDNEY STONES TECHNIQUE: 2 images of the abdomen. COMPARISON: Abdominal radiographs 06/13/2023. CT abdomen pelvis 04/17/2023. FINDINGS: A kidney stone projecting in the region of the proximal right ureter measuring 0.7 cm is unchanged. Calculus projecting in the region of the inferior pole the left kidney measuring 0.6 cm is unchanged. This could represent parenchymal scarring. IMPRESSION: Bilateral renal calcifications are unchanged. Concern that the right kidney stone may be in the region of the proximal right ureter as before. Consider CT KUB for further evaluation. Reviewed by: Eric Lang MD on 07/05/2023 6:10 PM PST Approved by: Eric Lang MD on 07/05/2023 6:10 PM PST Station ID: [id number]
== END 2023-07-05 23:59 | disposition home or self-care (01) ==
LOC: DI.WOS 08:00
PROVIDERS: ATTEND Urology
DX: N20.0 Calculus of kidney (principal)

== ENCOUNTER 2023-07-16 07:30 | Day surgery (SDC) | payer OTHER ==
[2023-07-16] MEDS ORDERED: LACTATED RINGERS 1,000 ML IV ONE (07:35)
[2023-07-16] MEDS ORDERED: ceFAZolin 2 GM VIAL ONE (07:41)
[2023-07-16] MEDS ORDERED: fentaNYL 100 MCG/2 ML VIAL ONE (08:00)
[2023-07-16] MEDS ORDERED: PROPOFOL 200 MG/20 ML VIAL IVP ONE (08:00)
[2023-07-16] MEDS ORDERED: MIDAZOLAM 2 MG/2 ML VIAL ONE (08:00)
[2023-07-16] MEDS ORDERED: LIDOCAINE-PF 2% 10 ML AMP SUBQ ONE (08:00)
[2023-07-16] MEDS ORDERED: GLYCOPYRROLATE 1 MG/5 ML VIAL ONE (08:10)
[2023-07-16] MEDS ORDERED: PHENYLEPHRINE HCL 0.5 MG/5 ML AMPULE ONE (08:15)
--- NOTE | 2023-07-16 08:26 | ANESTHESIA ---
Pre-Anesthesia VS, & Labs - Diagnosis R kidney stone - Procedure R ureteroscopy laser lithotripsy, R cystoscopy Vital Signs: Temp Pulse Resp BP Pulse Ox O2 Flow Rate 36.0 C L 80 16 144/80 H 95 0 07/16/23 07:49 07/16/23 07:49 07/16/23 07:49 07/16/23 07:49 07/16/23 07:49 07/16/23 07:49 Height: 5 ft 3 in Weight (kg): 126 kg Body Mass Index: 49.1 BMI Classification: Morbidly Obese - NPO >8 hours - Is Patient ?: No - Lab Results Lab results reviewed: Yes Home Medications and Allergies B Complex W-C No.20/Folic Acid [Mynephron Capsule] 1 cap PO DAILY 02/06/17 Cholecalciferol (Vitamin D3) [Vitamin D3] 2,000 units PO DAILY 02/06/17 Levothyroxine [Synthroid] 100 mcg PO DAILY 02/06/17 Multivitamin/Iron/Folic Acid [Centrum Adults Tablet] 1 tab PO DAILY 02/06/17 Rosuvastatin Calcium [Crestor] 10 mg PO MOWEFR 02/06/17 Topiramate [Topamax] 25 mg PO BID 02/06/17 Venlafaxine HCl [Venlafaxine HCl ER] 75 mg PO DAILY 05/08/17 Aspirin [Aspirin EC] 81 mg PO DAILY 07/22/20 Dicyclomine [Bentyl] 10 mg PO QID PRN 07/22/20 [place]-3S/Dha/Epa/Fish Oil [Fish Oil 1,200 mg Softgel] 1 each PO DAILY 07/22/20 Nystatin Cream [Mycostatin Cream] 1 applic TOP BID PRN 05/21/23 Omeprazole 20 mg PO DAILY 05/21/23 hydrOXYzine HCL [Hydroxyzine HCl] 25 mg PO HS 05/21/23 Allergies/Adverse Reactions: Allergies Allergy/AdvReac Type Severity Reaction Status Date / Time No Known Drug Allergies Allergy Verified 07/13/23 14:05 Anes History & Medical History - Anesthetic History Anesthesia Complications: reports: No previous complications Family history of Anesthesia Complications: Denies Family history of Malignant Hyperthermia: Denies - Medical History Cardiovascular: reports: Hypertension, High cholesterol, Other Pulmonary: reports: Sleep apnea, CPAP use Gastrointestinal: reports: GERD (after large meals), Other Urinary: reports: Frequency, Kidney stones Neuro: reports: None Musculoskeletal: reports: Osteoarthritis, Fibromyalgia Endocrine/Autoimmune: reports: HyPOthyroidism Blood Disorders: reports: None Skin: reports: None Smoking Status: Never smoker History of Cancer?: No - Surgical History General: reports: Colonoscopy Eyes Ears Nose Throat (EENT): reports: Tonsil/Adenoidectomy Cardiothoracic: reports: Other Urologic: reports: Ureterolithotomy (stones) Gynecologic: reports: Hysterectomy, Other Orthopedic: reports: Knee replacement, Carpal Tunnel surgery Exam General: Alert, Oriented x3, Cooperative Dental: Dentures full Upper, Dentures full Lower Mouth Openin Fingerbreadth Neck Mobility: Normal Mallampati classification: II Respiratory: Lungs clear, Normal breath sounds, No respiratory distress Cardiovascular: Regular rate Neurological: Normal speech Mental/Cognitive Status: Alert/Oriented X3, Normal for patient Cognitive Status: Within normal limits Plan Anesthesia Type: General Consent for Procedure(s) Verified and Reviewed: Yes Code Status: Attempt Resuscitation ASA classification: 3-Severe systemic disease Is this case an emergency?: No
[2023-07-16] MEDS ORDERED: ATROPINE ABBOJECT 1 MG/10 ML SYRINGE IVP PRN (09:01)
[2023-07-16] MEDS ORDERED: MORPHINE 2 MG/ML CARPUJECT IVP PRN (09:01)
[2023-07-16] MEDS ORDERED: NALOXONE 0.4 MG/ML VIAL IVP PRN (09:01)
[2023-07-16] MEDS ORDERED: ePHEDrine 50 MG/ML VIAL IVP PRN (09:01)
[2023-07-16] MEDS ORDERED: ONDANSETRON 4 MG/2 ML VIAL IVP PRN ×2 (09:01→10:04)
[2023-07-16] MEDS ORDERED: METOCLOPRAMIDE 10 MG/2 ML VIAL IVP PRN (09:01)
[2023-07-16] MEDS ORDERED: HYDROmorphone 0.5 MG/0.5 ML SYRINGE IVP PRN (09:01)
[2023-07-16] MEDS ORDERED: fentaNYL 100 MCG/2 ML VIAL IVP PRN (09:01)
[2023-07-16] MEDS ORDERED: LIDOCAINE 2% URO-JET 5 ML SYRINGE UR ONE ×2 (09:05→09:11)
[2023-07-16] MEDS ORDERED: iohexoL-240 10 ML VIAL IVP ONE ×2 (09:05→09:12)
[2023-07-16] MEDS ORDERED: ONDANSETRON 4 MG/2 ML VIAL ONE (09:27)
[2023-07-16] MEDS ORDERED: DEXAMETHASONE 4 MG/ML VIAL ONE (09:27)
[2023-07-16] MEDS ORDERED: KETOROLAC 30 MG/ML VIAL ONE (09:54)
[2023-07-16] MEDS ORDERED: LACTATED RINGERS 1,000 ML IV SCH (10:00)
[2023-07-16] MEDS ORDERED: LACTATED RINGERS 200 ML IV ONE (10:07)
[2023-07-16] MEDS ORDERED: traMADol 50 MG TABLET PO PRN (10:08)
--- NOTE | 2023-07-16 10:13 | Discharge Plan ---
Discharge Plan Problem Reviewed?: Yes Disposition: Home, Self Care Condition: Good Prescriptions: Docusate Sodium 100Mg Capsule [Colace 100Mg Capsule] 100 mg PO DAILY #7 cap cephALEXin [Keflex] 500 mg PO ONCE #1 cap traMADol [Ultram] 50 mg PO ONCE PRN #10 tablet PRN Reason: Pain 5-7 Diet: Regular Activity Restrictions: No Restrictions Shower Restrictions: No Driving Restrictions: No Instruction Topics: Stents Ureteral Additional Instructions or Follow Up instructions: You will be contacted for follow-up next week for cystoscopy and stent removal in the office No Smoking: If you smoke, Please STOP! Call for help. Follow-up with: Amadou Rodriguez MD [Provider Admit Priv/Credential] -
--- NOTE | 2023-07-16 10:16 | OPERATIVE REPORT ---
Operative Report - General Procedure Date: 07/16/23 Planned Procedure: Cystoscopy, right ureteroscopy, laser lithotripsy and stent Pre-Op Diagnosis: Right renal stone Procedure Performed: Cystoscopy, right ureteroscopy, laser lithotripsy and stent Post Op Diagnosis: Right proximal ureteral stone - Procedure Note Primary Surgeon: Michael Anesthesia Provider: LUIGI Milner Anesthesia Technique: General LMA Pathology: none Estimated Blood Loss (mL): 1 Indications: Right UPJ stone 8mm Findings: Stone dusted, found in proximal ureter Complications: none - Other Other Information/Narrative: After informed consent was obtained the patient was brought to the OR and laid in the supine position. The patient was Necaise per anesthesia protocols and placed in the dorsolithotomy position. She was then prepped and draped in usual sterile fashion. A formal timeout was performed reconfirming the patient, procedure and laterality. Talent Acquisition Relationship Manager x-ray showed a radiopaque 8 mm stone near the right UPJ. A 22 Japanese scope was Jenkins ease into urinary bladder. Bladder inspected and full there were no masses, lesions or other concerns. A sensor wire was placed up t he right ureter past the stone. A dual-lumen catheter was then used to place a second wire past the stone. A Ibarra catheter was placed into the bladder to decompress the bladder and then a flexible ureteroscope was advanced over the wire up to the level of the stone. With direct visualization the stone was seen to be actually in the proximal ureter. Using a 550 m laser fiber we dusted the stone into small pieces. These were all small enough that they were suspected to be able to pass. On society editor imaging there is no more radiopacities. The kidney was inspected and there were no large stones only dust. The ureter was then cleared under direct visualization. A 6 Japanese, 24 cm double-J ureteral stent was placed with good curling noted in the kidney and good curling noted in the bladder. The bladder was emptied and a Uro-Jet was placed. This included the procedure. The patient tolerated the procedure well was brought to PACU that further incident. She will follow-up in 1 week's time for cystoscopy and stent removal in the office. All counts were correct
--- NOTE | 2023-07-16 10:38 | ANESTHESIA POST OP EVALUATION ---
Anesthesia Post Eval - Post Anesthesia Eval Vitals: Last Vital Signs Temp 36.5 C 07/16/23 10:32 Pulse 64 07/16/23 10:32 Resp 16 07/16/23 10:32 BP 168/85 H 07/16/23 10:32 Pulse Ox 99 07/16/23 10:32 O2 Flow Rate 0 07/16/23 07:49 CV Function Including HR & BP: Stable Pain Control: Satisfactory Nausea & Vomiting: Negative Mental Status: Baseline Respiratory Status: Airway Patent Hydration Status: Satisfactory Anesthesia Complications: None
[2023-07-16 10:57] VITALS: O2SAT 96
[2023-07-16 11:17] VITALS: BP 140/79
--- NOTE | 2023-07-16 15:27 | XRAY Report ---
PROCEDURE: OR C-Arm Procedure INDICATIONS: STENT PLACEMENT FLUORO TIME: 0.3MON TECHNIQUE: Multiple fluoroscopic spot images were obtained for urologic procedure. COMPARISON: None. Findings and impression: Right ureteral wire cannulization and stent placement. Please see operative note for full details. Reviewed by: Jamal Elaine MD on 07/16/2023 3:26 PM PST Approved by: Jamal Elaine MD on 07/16/2023 3:26 PM PST Station ID: [id number]
== END 2023-07-16 07:31 | disposition home or self-care (01) ==
LOC: SDS 07:30
PROVIDERS: ATTEND Urology
DX: N20.1 Calculus of ureter (principal); E66.01 Morbid (severe) obesity due to excess calories; Z68.42 Body mass index [BMI] 45.0-49.9, adult; G47.30 Sleep apnea, unspecified
CPT/HCPCS: 52356; C1758; C2617; J2372; J7120; Q9966

== ENCOUNTER 2023-11-29 12:43 | Outpatient (CLI) | payer OTHER ==
[2023-11-29 18:07] LABS: CALCIUM 9.9 mg/dL (8.5-10.3); CREATININE 1.2 mg/dL (0.6-1.3)
[2023-11-29 18:16] LABS: THYROID STIMULATING HORMONE 3.59 uIU/mL (0.34-5.60)
[2023-11-29 20:10] LABS: ESTIMATED AVERAGE GLUCOSE 103 mg/dL (70-100); HEMOGLOBIN A1c% 5.2 % (4.27-6.07)
== END 2023-11-29 12:44 | disposition home or self-care (01) ==
LOC: LAB.N 12:43
PROVIDERS: ATTEND Physician Assistant Medical
DX: N18.9 Chronic kidney disease, unspecified (principal); R73.01 Impaired fasting glucose; E03.9 Hypothyroidism, unspecified
CPT/HCPCS: 36415; 80048; 83036; 84443

== ENCOUNTER 2023-12-17 13:23 | Outpatient (CLI) | payer OTHER ==
--- NOTE | 2023-12-17 15:55 | XRAY Report ---
PROCEDURE: Chest 2V INDICATIONS: CHEST PAIN TECHNIQUE: 2 views of the chest were acquired. COMPARISON: None. FINDINGS: Surgical changes and devices: None. Lungs and pleura: No pleural effusions or pneumothorax. Linear atelectasis versus scarring in the le ft lung base. No focal consolidations otherwise. Mediastinum: Mediastinal contours appear normal. Heart size is normal. Bones and chest wall: No suspicious bony lesions. Overlying soft tissues appear unremarkable. IMPRESSION: No acute cardiopulmonary process. Reviewed by: Adria Muniz MD on 12/17/2023 3:54 PM PDT Approved by: Ardia Muniz MD on 12/17/2023 3:54 PM PDT Station ID: [id number]
== END 2023-12-17 13:24 | disposition home or self-care (01) ==
LOC: LAB 13:23
PROVIDERS: ATTEND Physician Assistant Medical
DX: R07.9 Chest pain, unspecified (principal)
CPT/HCPCS: 36415; 85379